=== PATIENT | female | born 1945 | race Caucasian/White ===

== ENCOUNTER → 2017-01-16 | Outpatient (CLI) | payer OTHER ==
[~2017-01-16] MED LIST: DEPAKOTE; DEPAKOTE ER500 MG PO; FISHOIL; IRON; LOVASTATIN 20 M20 MG PO; METFORMIN; METFORMIN HCL500 MG PO; MIRAPEX 0.250.25 M1 PO; MIRAPEX1 MG PO; MOBIC15 MG PO; NIASPAN; NORCO 5-325 TA1 EACH PO; OLANZAPINE10 MG PO; OLANZAPINE7.5 MG PO; PRAMIPEXOLE DIHY1 MG PO; PREDNISONE 10 M10 M1 PO; PREDNISONE50 MG PO; PROVENTIL HFA6.7 G1 INH; TESSALON PERLE100 MG PO; VENTOLIN HFA 1818 GM INH; VENTOLIN17 GM INH; ZOCOR 20 MG TAB20 M1 PO; ZPAK PO; ZYPREXA; ZYPREXA 10 MG T10 MG PO
== END ==
LOC: RAD 10:05
DX: Z12.31 Encounter for screening mammogram for malignant neoplasm of breast (principal)

== ENCOUNTER 2019-03-26 12:38 | Emergency (ER) | payer OTHER ==
[~2019-03-26] VITALS: Ht 162.6 cm; Wt 113.4 kg
[2019-03-26 13:18] LABS: EOSINOPHILS 1.6 % (0.0-3.0); HEMATOCRIT 42.6 % (37.0-47.0); HEMOGLOBIN 14.6 gm/dL (12.0-15.0); LYMPHOCYTES 40.4 % (24.0-44.0); MCH 32.6 pg (26.0-34.0); MCHC 34.4 g/dL (28.0-37.0); MCV 94.9 fL (80.0-100.0); MONOCYTES 6.4 % (1.0-8.0); POLYS 50.6 % (36.0-66.0); RBC 4.49 mil/uL (4.20-5.00); RDW 13.9 % (10.5-14.5)
[2019-03-26 13:21] LABS: ANION GAP 13 mmol/L (7-16); BUN 18 mg/dL (7-18); CALCIUM 8.9 mg/dL (8.5-10.1); CHLORIDE 104 mmol/L (98-107); CO2 23 mmol/L (21-32); CREATININE 1.1 mg/dL (0.6-1.0); GLUCOSE 131 mg/dL (74-106); POTASSIUM 4.1 mmol/L (3.5-5.1); SODIUM 140 mmol/L (136-145)
[2019-03-26 13:32] LABS: ALBUMIN 3.4 g/dL (3.4-5.0); MAGNESIUM 1.4 mg/dL (1.8-2.4); SGOT 17 U/L (15-37); SGPT 20 U/L (30-65); TOTAL BILIRUBIN 0.4 mg/dL (<0.1-1.0); TOTAL PROTEIN 6.6 g/dL (6.4-8.2); TROPONIN-I <0.06 ng/mL (<0.06)
[2019-03-26 13:51] LABS: PLATELET COUNT 216 thou/uL (150-400)
[2019-03-26] MEDS ORDERED: MAG-OXIDE400 MG PO (14:08)
[2019-03-26 14:26] LABS: URINE BILIRUBIN NEGATIVE (Negative); URINE BLOOD 1+ (Negative); URINE CLARITY CLEAR; URINE COLOR YELLOW; URINE GLUCOSE-RANDOM* NEGATIVE (Negative); URINE KETONES 1+ (Negative); URINE LEUKOCYTES-REFLEX NEGATIVE (Negative); URINE NITRITE-REFLEX NEGATIVE (Negative); URINE PROTEIN (DIPSTICK) 1+ (Negative); URINE UROBILINOGEN 0.2 E.U./dl (0.2-1.0)
[2019-03-26 14:30] LABS: BACTERIA-REFLEX None Seen /HPF (None Seen); CRYSTALS None Seen /LPF (None Seen); SQUAMOUS 0-3 Few /LPF (0-3); URINE RBC 0-2 Rare /HPF (0-2); URINE WBC-REFLEX None Seen /HPF (0-5)
[2019-03-26 14:31] LABS: HYALINE CASTS 0-3 Few /LPF (None Seen)
[2019-03-26 15:00] VITALS: BP 118/79
--- NOTE | 2019-03-27 08:10 | EKG ---
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1945 Requested By: uAgie Rivero Order Number: [id number] MD: Huy Pena Measurements Intervals [place] Rate: 67 P: 50 ME: 175 QRS: -40 QRSD: 80 T: 45 QT: 502 QTc: 530 Interpretive Statements Sinus rhythm Left axis deviation Low voltage, precordial leads Consider anterior infarct Compared to ECG 11/12/2011 10:33:29 Electronically Signed On 03-27-2019 8:10:36 CDT by Huy Pena [email or web address] ��������������������������������������������� <ELECTRONICALLY SIGNED> ���������������������������������������� By: Huy Pena MD ��������������������������������������������� 03/27/19 0810 1326 25 Huy Pena MD /SHITAL
== END 2019-03-26 15:00 | disposition home or self-care (01) ==
LOC: ER 12:38
PROVIDERS: Emergency Medicine
DX: R26.9 Unspecified abnormalities of gait and mobility (principal); R53.1 Weakness; T50.905A Adverse effect of unspecified drugs, medicaments and biological substances, initial encounter; F31.9 Bipolar disorder, unspecified; E83.42 Hypomagnesemia; R26.89 Other abnormalities of gait and mobility; Z90.710 Acquired absence of both cervix and uterus; Z88.8 Allergy status to other drugs, medicaments and biological substances

== ENCOUNTER 2019-04-01 10:47 | Inpatient (IN) | payer OTHER ==
[~2019-04-01] VITALS: Ht 2 cm; Wt 112.6 kg
--- NOTE | ~2019-04-01 | HC ---
[facility] [place] [address] CONSULTATION Name: JOSÉ MANUEL FLORES Room #: 208-P ADM IN M.R.#: [id number] Admission: 04/01/19 ������������������ Attend Phys: Jaskaran Jara MD Discharge: ������������������ Date of : 49 Report #: [id number] THIS REPORT FOR: //name// CC: Vincent Jara DATE OF SERVICE: 04/02/2019 HISTORY OF PRESENT ILLNESS: The patient is a 73-year-old white female with history of bipolar disorder, bilateral lower extremity weakness, complains of knee pain for the last couple of weeks. She had a fall prior to admission. She also notes that she has had loss of some of her scalp hair. She is being further evaluated regarding her lower extremity weakness and Neurology is to assess and she has scans that are ordered including MRI of the brain and the thoracic spine. We are seeing her in rehabilitation medicine consultation. PAST MEDICAL HISTORY: Includes history of degenerative arthritis. She has been started on oral Relafen. She has history of left knee surgery in 1987, hysterectomy, bipolar disorder. MEDICATIONS: Please see the full medication listing. ALLERGIES: ARIPIPRAZOLE, HALOPERIDOL, LITHIUM. HABITS: No history of tobacco or alcohol abuse. SOCIAL HISTORY: Lives in an apartment alone, was a furniture walker. Did not utilize gait aids. There is a son that lives close by. REVIEW OF SYSTEMS: No current complaints of chest pain, shortness of breath or abdominal discomfort. PHYSICAL EXAMINATION: GENERAL: A 73-year-old white female, overweight, no obvious distress. She is alert, pleasant, follows basic commands. Facies are symmetric. VITAL SIGNS: Temperature 97.4, pulse 52, respirations 14, blood pressure 91/44. NEUROLOGIC: Functional range of motion of both upper extremities. Strength is grade 4-/5. DTRs are trace to 1. Lower extremities, no focal calf swelling, functional range of motion with strength grade 4-/5. DTRs are trace to 1. In OT, she has been min assist with sit to stand. She did ambulate 10 feet to the bathroom with the walker. She did need some assistance with basic lower body dressing. ASSESSMENT: A 73-year-old white female with the following problem list: 1. Bilateral lower extremity weakness. 2. History of knee degenerative arthritis. [address] [address] CONSULTATION Name: JOSÉ MANUEL FLORES Room #: 208-P [facility] IN M.R.#: [id number] Admission: 04/01/19 ������������������ Attend Phys: Jaskaran Jara MD Discharge: ������������������ Date of : 49 Report #: [id number] 3. History of loss of scalp hair. 4. Bipolar disorder. PLAN: Neurology to consult. Therapy evaluations are underway. MRI scans as noted. We will be glad to follow along with you regarding her rehab therapy needs. ��������������������������������������������� ���������������������������������������� By: ��������������������������������������������� 1444 0524 Venkat Deal MD /nt
[~2019-04-01 10:47] MED LIST changes: +MAG-OXIDE400 MG PO
[2019-04-01 10:48] VITALS: BP 97/58
[2019-04-01 11:23] LABS: ABSOLUTE NEUTROPHILS 5.3 thou/uL (1.4-8.2); BASOPHILS 0.9 % (0.0-2.0); EOSINOPHILS 0.5 % (0.0-3.0); HEMATOCRIT 42.4 % (37.0-47.0); HEMOGLOBIN 14.3 gm/dL (12.0-15.0); LYMPHOCYTES 30.9 % (24.0-44.0); MCH 32.2 pg (26.0-34.0); MCHC 33.6 g/dL (28.0-37.0); MCV 95.7 fL (80.0-100.0); PLATELET COUNT 224 thou/uL (150-400); POLYS 59.7 % (36.0-66.0); RBC 4.43 mil/uL (4.20-5.00); RDW 13.8 % (10.5-14.5); WBC 8.8 thou/uL (4.0-11.0)
[2019-04-01 11:30] LABS: ANION GAP 7 mmol/L (7-16); BUN 14 mg/dL (7-18); CALCIUM 9.1 mg/dL (8.5-10.1); CHLORIDE 106 mmol/L (98-107); CO2 28 mmol/L (21-32); CREATININE 0.9 mg/dL (0.6-1.0); GLUCOSE 124 mg/dL (74-106); SODIUM 141 mmol/L (136-145)
[2019-04-01 11:35] LABS: INR 1.1; PROTIME 11.3 Seconds (9.3-11.4)
[2019-04-01 11:41] LABS: ALBUMIN 3.3 g/dL (3.4-5.0); MAGNESIUM 1.9 mg/dL (1.8-2.4); SGOT 16 U/L (15-37); SGPT 19 U/L (30-65); TOTAL BILIRUBIN 0.5 mg/dL (<0.1-1.0); TOTAL PROTEIN 6.9 g/dL (6.4-8.2); TROPONIN-I <0.06 ng/mL (<0.06)
[2019-04-01 14:54] LABS: URINE BILIRUBIN NEGATIVE (Negative); URINE BLOOD TRACE (Negative); URINE CLARITY CLEAR; URINE COLOR YELLOW; URINE GLUCOSE-RANDOM* NEGATIVE (Negative); URINE KETONES 1+ (Negative); URINE LEUKOCYTES-REFLEX NEGATIVE (Negative); URINE NITRITE-REFLEX NEGATIVE (Negative); URINE PROTEIN (DIPSTICK) NEGATIVE (Negative); URINE UROBILINOGEN 0.2 E.U./dl (0.2-1.0)
[2019-04-01 17:16] LABS: FOLIC ACID 39.7 ng/mL (8.6-58.9)
[2019-04-01 23:42] VITALS: BP 111/60
[2019-04-02 01:13] VITALS: BP 111/60
[2019-04-02 04:38] VITALS: BP 104/62
[2019-04-02 07:14] VITALS: BP 91/44
[2019-04-02] MEDS ORDERED: BENZTROPINE MES1 MG PO (11:23)
[2019-04-02 16:00] VITALS: BP 106/64
[2019-04-02 16:10] LABS: 25-HYDROXY TOTAL 16.6 ng/mL (30.0-100.0)
[2019-04-02 19:48] VITALS: BP 130/72
[2019-04-03] VITALS (7 sets, daily range): BP systolic 106–122; BP diastolic 60–76
[2019-04-03] MEDS ORDERED: MIRALAX17 GM PO (18:35)
[2019-04-03] MEDS ORDERED: NABUMETONE 500500 M1 PO (18:35)
[2019-04-03] MEDS ORDERED: SYNTHROID25 MC1 PO (18:35)
[2019-04-03] MEDS ORDERED: ACETAMINOPHEN325 M1 PO (18:35)
[2019-04-03] MEDS ORDERED: VITAMIN D2000 UNIT PO (18:45)
== END 2019-04-03 20:36 | disposition home health service (06) | DRG 72 ==
LOC: ER 10:47 → EROBS 15:31 → 2N 15:31
PROVIDERS: Emergency Medicine; Nurse Practitioner; ADMIT Internal Medicine
DX: G93.40 Encephalopathy, unspecified (principal); G31.9 Degenerative disease of nervous system, unspecified; R26.0 Ataxic gait; F31.9 Bipolar disorder, unspecified; M17.10 Unilateral primary osteoarthritis, unspecified knee; E03.9 Hypothyroidism, unspecified; E55.9 Vitamin D deficiency, unspecified; W19.XXXA Unspecified fall, initial encounter; Y93.89 Activity, other specified; Y92.89 Other specified places as the place of occurrence of the external cause; Y99.8 Other external cause status; Z88.8 Allergy status to other drugs, medicaments and biological substances; Z79.899 Other long term (current) drug therapy; Z90.710 Acquired absence of both cervix and uterus
CPT/HCPCS: 10081; 10797

== ENCOUNTER 2019-08-13 12:56 | Inpatient (IN) | payer OTHER ==
[~2019-08-13] VITALS: Ht 162.6 cm; Wt 102.5 kg
[~2019-08-13 12:56] MED LIST changes: +ACETAMINOPHEN325 M1 PO; +BENZTROPINE MES1 MG PO; +MIRALAX17 GM PO; +NABUMETONE 500500 M1 PO; +SYNTHROID25 MC1 PO; +VITAMIN D2000 UNIT PO
[2019-08-13 13:38] LABS: ABSOLUTE NEUTROPHILS 3.5 thou/uL (1.4-8.2); BASOPHILS 1.3 % (0.0-2.0); HEMATOCRIT 46.1 % (37.0-47.0); HEMOGLOBIN 15.5 gm/dL (12.0-15.0); LYMPHOCYTES 46.4 % (24.0-44.0); MCH 32.2 pg (26.0-34.0); MCHC 33.6 g/dL (28.0-37.0); MCV 95.8 fL (80.0-100.0); MONOCYTES 6.5 % (1.0-8.0); PLATELET COUNT 271 thou/uL (150-400); POLYS 44.8 % (36.0-66.0); RBC 4.81 mil/uL (4.20-5.00); WBC 7.8 thou/uL (4.0-11.0)
[2019-08-13 13:44] LABS: ANION GAP 11 mmol/L (7-16); BUN 15 mg/dL (7-18); CALCIUM 9.7 mg/dL (8.5-10.1); CHLORIDE 104 mmol/L (98-107); CO2 25 mmol/L (21-32); CREATININE 1.1 mg/dL (0.6-1.0); GLUCOSE 125 mg/dL (74-106); POTASSIUM 3.9 mmol/L (3.5-5.1); SODIUM 140 mmol/L (136-145)
[2019-08-13 13:54] LABS: ALBUMIN 3.8 g/dL (3.4-5.0); SGOT 18 U/L (15-37); SGPT 21 U/L (30-65); TOTAL BILIRUBIN 0.7 mg/dL (<0.1-1.0); TOTAL PROTEIN 7.6 g/dL (6.4-8.2); TROPONIN-I <0.06 ng/mL (<0.06)
[2019-08-13 14:12] LABS: URINE BILIRUBIN NEGATIVE (Negative); URINE BLOOD 1+ (Negative); URINE CLARITY CLOUDY; URINE COLOR YELLOW; URINE GLUCOSE-RANDOM* NEGATIVE (Negative); URINE KETONES NEGATIVE (Negative); URINE NITRITE-REFLEX NEGATIVE (Negative); URINE PROTEIN (DIPSTICK) 2+ (Negative); URINE SPECIFIC GRAVITY >= 1.030 (1.005-1.035); URINE UROBILINOGEN 0.2 E.U./dl (0.2-1.0)
[2019-08-13 14:14] LABS: URINE LEUKOCYTES-REFLEX 1+ (Negative)
[2019-08-13 14:17] LABS: SQUAMOUS >10 Many /LPF (0-3)
[2019-08-13 14:20] LABS: CASTS None Seen /LPF (None Seen); RENAL EPITHELIAL CELLS 0-3 Few /LPF (None Seen)
[2019-08-13 14:21] LABS: URINE RBC 3-10 Few /HPF (0-2)
[2019-08-13 14:22] LABS: CRYSTALS None Seen /LPF (None Seen); MUCUS 4-6 Moderate strn/LPF (None Seen)
[2019-08-13 14:23] LABS: TRANSITIONAL EPITHEL CELL 4-10 Moderate /LPF (None Seen)
[2019-08-13 15:48] VITALS: BP 139/88
[2019-08-13 16:14] VITALS: BP 139/88
--- NOTE | 2019-08-13 16:28 | NUR ---
1605 Admitted patient to room from ER, patient alert, cooperative, diagnosis manic with second degree bipolar. Ht 5'4" weight 130, Bp 124/69, Temp 98.0, Pulse 72, RES 16. Patient explained rules of unit, visiting hour, telephone calls. Patient inventory done, patient's son Eduardo dropped patient off and left. Patient's son notified of patient's admission.
[2019-08-13 17:36] VITALS: BP 124/69
--- NOTE | 2019-08-13 18:17 | NUR ---
1700 new admit transferred from emergency room for suicdal ideations and manic behavior/ bipolar. While assessing patient on unit, patient denied si and was very calm cooperative. Patient's son dropped patient at er and left. Patient lives in a long term, DR Dixon accepted patient after talking with long term to make sure she can come back. Patient ate all her dinner no complaints. Patient was asked to shower but refused, she needs encouraging to shower patient smells. Patients assessment done.
[2019-08-13 21:17] VITALS: BP 124/74
--- NOTE | 2019-08-14 02:43 | NUR ---
ASSUMED CARE OF PATIENT AT 1915 ON 08/13/19. THIS RN ARRIVED TO THE UNIT, WAS GIVEN REPORT OF THIS PATIENT. PATIENT LAYING IN BED DURING HAND OFF ROUNDS WITH EYES CLOSED, BUT OPENS THEM TO MY VOICE. THIS NURSE EXITED ROOM. AT APPROXIMATELY 2030, THIS NURSE ATTEMPTED TO PASS MEDICATION, PATIENT STATED 'I AM NOT TAKING MEDICATION!' THIS NURSE ASKED WHAT THE PROBLEM IS AND SHE STATED 'THEY ALWAYS MAKE ME FEEL GOOD AND MORE WHATS WRONG WITH ME.' THIS NURSE ATTEMPTED TO CALM GUEST, BUT WAS UNABLE TO DO SO. PATIENT ARRIVED AT DESTINATION WITH NO FURTHER ISSUES, SHE MADE NO SI STATEMENTS, HI, AH/VH. WILL CONTINUE TO MONITOR NEEDED.
--- NOTE | 2019-08-14 08:20 | EKG ---
[place] [address] [facility] [place] [address] ELECTROCARDIOGRAM REPORT Name: JOSÉ MANUEL FLORES Room #: 523B-B ADM IN M.R.#: [id number] Admission: 08/13/19 Attend Phys: Mario Dixon DO Discharge: Date of : 49 Report #: [id number] THIS REPORT FOR: //name// [facility] ED Test Date: 2019-08-13 Test Time: 14:26:32 Pat Name: JOSÉ MANUEL FLORES Department: Room: 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1945 Requested By: Silva Garcia Order Number: [id number] MD: Kishore Cna Measurements Intervals [place] Rate: 59 P: 13 MS: 167 QRS: -33 QRSD: 83 T: 50 QT: 506 QTc: 502 Interpretive Statements Sinus rhythm Left axis deviation Consider anterior infarct Prolonged QT interval Compared to ECG 03/26/2019 13:26:08 Prolonged QT interval now present Electronically Signed On 08-14-2019 8:20:42 CDT by Kishore Can [email or web address] <ELECTRONICALLY SIGNED> By: Kishore Can MD, FAC 08/14/19 0820 1426 1426 Kishore Can MD, [facility] /EPI
[2019-08-14 08:55] VITALS: BP 146/73
[2019-08-14 09:00] VITALS: BP 146/73
--- NOTE | 2019-08-14 09:24 | NUR ---
PT UP WALKING AROUND THE UNIT. PT ATTENDING GROUP THIS AM. PT DIDN'T REFUSE MEDS THIS AM. PT STATED THANK YOU.
[2019-08-14 09:46] LABS: TSH 1.955 uIU/mL (0.358-3.740)
--- NOTE | 2019-08-14 17:56 | NUR ---
RIOS contacted pt's son Eduardo and got a history of pts activities from him. He said every few years pt will do well on her med regimine, and then her meds stop being effective. He said when she is manic, she tends to do dangerous things such as steal his car and run people over, or drive from to [place]. He said he believes she has currently stopped all of her meds. She was on a regimine of olanzipine and Depakote; the olanzipine was causing pt to shake so her doctor titrated her down to 2.5 mg. This caused her to experience odd behaviors so her doctor brought her back to her normal regimine of 10mg. Her behaviors did not improve. Yesterday, Eduardo reports he called his mom to take her to lunch and she responded "God didnt want us to meet and has plans for me." He immediately knew she was manic and asked a special police to escort her to the hospital. He said pt fought and hit the special police. He also mentioned wanting to obtain guardianship of his mother. He would like to meet with the psych doc via phone on at either 10am or 2pm. He also asked for permission to meet bring pt her things after he gets off work at 8pm and visit for a little bit. RIOS spoke with psych doc who said he will give permission for visits to occur from [phone] with pt's son. He also will call him today to get a history of medications and behaviors. He gave RIOS contact information for a guardianship wet end operator (Karly Garay [phone]) to assist pt's son. RIOS relayed this informaition to pts son. RIOS will continue to follow pt during her stay in the hospital.
[2019-08-14 20:23] VITALS: BP 117/68
[2019-08-14 23:15] VITALS: BP 117/68
--- NOTE | 2019-08-15 02:58 | NUR ---
OUT WITH PEERS IN DAY ROOM EARLY IN EVENING. AFTER SNACKS, PT TOOK HS MEDS WITH ENCOURAGEMENT. SON VISITED AND BROUGHT CLOTHES. INVENTORIED AND PLACED IN STORAGE CLOSET. ABOUT 2300, PT BECAME NAUSEATED AND VOMITED MODERATE AMOUNT OF STOMACH CONTENTS, BROWNISH IN COLOR. CLAIMS TO FEEL BETTER, AND IS SLEEPING WELL AT THIS TIME.
[2019-08-15 07:30] VITALS: BP 115/68
[2019-08-15 07:51] VITALS: BP 115/68
--- NOTE | 2019-08-15 08:52 | NUR ---
PT LYING IN BED WITH EYES OPEN. PT STILL HAS SOME NAUSEA, BUT REQUEST COOKIES AND APPLE JUICE. PT ACCEPTED TEGRETAL THIS AM. PT STATED SHE TOLD NURSE NOT TO GIVE HERE THAT DEPAKOTE AND ZYPREXIA CAUSE IT MAKES HER SICK. PT DIDN'T KNOW WHY SHE HAS TO TAKE MEDS. THIS CREDIT HISTORIAN ASKED IF SHE TAKES MEDS SHE SAID NO.
--- NOTE | 2019-08-15 13:59 | NUR ---
PT TOLERATED LUNCH, PT HAS NOT COMPLAINED OF ANY NAUSEA.
[2019-08-15 19:47] VITALS: BP 134/87
--- NOTE | 2019-08-15 22:24 | H ---
[facility] [place] [address] HISTORY AND PHYSICAL Name: JOSÉ MANUEL FLORES Room #: 523B-B ADM IN M.R.#: [id number] Admission: 08/13/19 Attend Phys: Mario Dixon DO Discharge: Date of : 49 Report #: [id number] THIS REPORT FOR: //name// CC: Mario Dixon Vincent Brown DATE OF SERVICE: 08/14/2019 INPATIENT PSYCHIATRIC EVALUATION ATTENDING PHYSICIAN: Mario Dixon DO CLINICAL OUTCOMES MANAGER: Emiliano Stone MD SOURCES OF INFORMATION: Chart notes from the ER, medical records including the patient being here and looks like March of this year for a brief hospitalization for weakness and balance issues. CHIEF COMPLAINT: Brought in by the police for concerns of anastasiya, altered mental status, self-care failure. She was seen in the ER by nurse practitioner, Rivka. HISTORY OF PRESENT ILLNESS: The patient is a 74-year-old female who presented to the ED after patient's son began to feel concern for safety. Per the patient, the patient has a history of bipolar disorder that was diagnosed 20 years ago. Son stated to me it was more like 30 years ago, but anyways has been not taking medications 2-3 months including Depakote and olanzapine. This is prescribed by Dr. Mario Robledo. The patient reports she began to notice increased swelling to her lower extremities, diarrhea or weight gain. The patient believed these symptoms were due to her medications, so she decided to stop taking them. After symptoms subsided, the patient reports she feels safe at home and does not know why she was taken to the ED. She denied complaints as well as SI or HI. Per the patient's son, she becomes increasingly manic. The patient's son has been disheveled and unkempt. She has also been making statements to other areas of short hostile nature. He visits her 1-2 times per week, picks through the lunch. When I called the patient this week, she stated "don't come to see me and the lord has better plans for me." Her PCP is Dr. Allen. PAST MEDICAL HISTORY: Lower extremity weakness and falls. PAST SURGICAL HISTORY: Hysterectomy in 2000, left knee surgery in 1987, bone spur in nose in 1983, history of falls, psychiatric history of bipolar disorder. FAMILY PSYCHIATRIC HISTORY: Maternal grandmother, bipolar disorder. Her mother [address] [address] HISTORY AND PHYSICAL Name: JOSÉ MANUEL FLORES Room #: 523B-B ADM IN .R.#: [id number] Admission: 08/13/19 Attend Phys: Mario Dixon DO Discharge: Date of : 49 Report #: [id number] is currently 89, I believe, and has evolving dementia. CURRENT MEDICATIONS: At home are nabumetone, levothyroxine, cholecalciferol, Mirapex. As stated, she discontinued olanzapine, Depakote on her own. ALLERGIES: To HALDOL, LITHIUM, ARIPIPRAZOLE, shakes, stiffness things like that. SOCIAL HISTORY: No smoking, no alcohol, no drug history. REVIEW OF SYSTEMS: From the Emergency Room yesterday; CONSTITUTIONAL: Denies fever, chills, malaise or unexplained weight change. EYES: Denies eye pain, visual change or discharge. HENT: Denies hearing changes, ear drainage, ear infections, ear pain, neck pain or neck stiffness. RESPIRATORY: Denies cough, shortness of breath, hemoptysis or respiratory distress. CARDIOVASCULAR: Denies chest pain, chest pain with exertion or edema. GASTROINTESTINAL: Denies abdominal pain, nausea, vomiting or diarrhea. GENITOURINARY: Denies burning, frequency or dysuria. MUSCULOSKELETAL: Denies back pain, joint pain, muscle weakness or myalgias. SKIN: Denies rash. NEUROLOGIC: Denies weakness, headache or loss of consciousness. PSYCHIATRIC: Denied SI, HI or psychiatric problems. Otherwise, 10-point review of systems was negative. Her exam in the ER was 83.92 kilos female, I think the weight may be off a bit. EKG showed sinus rhythm, rate of 59, left axis deviation, prolonged QT. Labs done in the ER, sodium 140, potassium 3.9, chloride 104, bicarbonate 25, BUN 15, creatinine 1.1, glucose 125, calcium 9.7, total bilirubin 0.7, AST 18, ALT 21, alkaline phosphatase 66. Troponin less than 0.06. Total protein 7.6, albumin 3.8. White count 7.8, H and H 15.5 and 46.1, platelet count 271. Urinalysis was abnormally positive with moderate mucus, moderate bacteria, many squamous cells, leukocyte esterase is 1+, urine nitrites were negative, 1+ blood, 2+ protein. It has been reflux for culture. PHYSICAL EXAMINATION: VITAL SIGNS: Today, temperature 36.9, pulse 51, respirations 16, BP 146/73. MUSCULOSKELETAL: She has a left convex scoliosis somewhat of a slowed gait. She did pass her physical therapy exam pretty well. MENTAL STATUS EXAMINATION: This is a well-developed, mildly obese female appearing stated age, but disheveled. Attention is impaired. Concentration limited. Speech is normal in rate, volume and tone. Thought process is linear and goal oriented. Thought content focused on discharge. [address] [place] [address] HISTORY AND PHYSICAL Name: JOSÉ MANUEL FLORES Room #: 523B-B ADM IN M.R.#: [id number] Admission: 08/13/19 Attend Phys: Mario Dixon DO Discharge: Date of : 49 Report #: [id number] psychomotor agitation, no psychomotor retardation. Denied SI or HI. Denied hopelessness, helplessness. Denied homicidal intent or plan. Memory formally tested with [facility] Mental Status Examination, ____ SLUMS result total score 18/30. Deficits were 1/3 when answered question, 1/5 ____ recall, 1/2 on reverse digit span, 2/4 on clock drawing and 6/8 on a paragraph fact recall. Insight limited. Judgment limited. Fund of knowledge, high average range. FORMULATION: A 74-year-old mildly obese female admitted for anastasiya, ruling out neurocognitive disorder. ASSESSMENT: Bipolar 1 disorder, most recent episode manic, moderate degree, unspecified cognitive impairment, rule out major neurocognitive disorder. MEDICAL COMORBIDITIES: As follows: 1. UTI. 2. Mild renal failure. 3. Hypothyroidism. PLAN: Evaluate, stabilize, obtain collateral. As stated in my HPI, I spoke with the son, Eduardo, who is in favor of hospitalization. 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 I am going to go ahead and restart the patient's olanzapine and Depakote. I explained to her that her failure to comply is delaying her discharge and participating in community activities. Time spent on interview, review of records, coordination of care is at least 60 minutes. STRENGTHS: She is insured supportive family. WEAKNESSES: Long mental illness, advancing age. <ELECTRONICALLY SIGNED> By: Mario Dixon DO 08/15/19 2224 1614 1828 Mario Dixon DO /nt
--- NOTE | 2019-08-16 00:32 | NUR ---
ASSUMED CARE @ 19:15 ON 08/15/19. SPOKE TO DAUGHTER ON PHONE, TOOK HS MEDS WHOLE WITH THIN WATER. ASKED FOR AND ATE A SNACK. COOPERATED WITH ASSESSMENT. DENIED SI AND HI. A&OX3-4. PT IN BED AT THIS TIME.
[2019-08-16 02:57] VITALS: BP 134/87
--- NOTE | 2019-08-16 06:12 | NUR ---
SLEPT 7 HOURS OVERNIGHT
[2019-08-16 06:13] VITALS: BP 134/87
[2019-08-16 07:00] VITALS: BP 139/78
[2019-08-16 08:30] VITALS: BP 139/78
--- NOTE | 2019-08-16 10:05 | NUR ---
THE PATIENT REFUSED MDICATIONS THIS MORNING carbamazepine XR AND NABUMENTONE. SHE COMLPAINED OF N/V LAST NIGHT AND THIS IS HER SECOND EPISODE OF N/V. THE PATIENT EXPRESSED THAT SHE VOMITED HER MEDICATIONS LAST NIGHT. SHE STATED THAT SHE IS IN NO PAIN THUS FAR TODAY. SHE DID EAT BREAKFAST THIS MORNING AND HELD IT DOWN. SHE HAS ORDERED LUNCH FOR TODAY. CONTINUE TO MONITOR.
--- NOTE | 2019-08-16 19:30 | NUR ---
SON HERE STATED THAT HIS MOM DIDN'T HAVE ANY ISSUES WITH DEPAKOTE, THAT SHE TOOK THE MED FOR 4 YEARS. NOW PT COMPLAINING ABOUT TEGRETAL MAKING HER SICK. HE ALSO STATED THAT SHE HAD ZYPREXIA BEFORE WITHOUT ANY ISSUES. HE STATED HE JUST WANTED HER TO GET HER LEVELS UP.
--- NOTE | 2019-08-16 22:36 | NUR ---
THE PT REFUSED ALL OF HER HS MEDICATIONS EXCEPT FOR ANTIBIOTIC MEDICATION. THE PT WAS SITTING WITH HER SON WHEN THIS PAYROLL ADMINISTRATIVE ASSISTANT CAME ON DUTY. ALERT ET ORIENTED X 3. WALKS WITH A STEADY GAIT. DENIES SI, HI, ANXIETY AND DEPRESSION. REMAINS ON 12 MINUTE CHECKS FOR HER SAFETY.
[2019-08-16 22:50] VITALS: BP 133/81
--- NOTE | 2019-08-17 04:31 | NUR ---
THE PT APPEARS TO BE RESTING COMFORTABLY IN BED AT THIS TIME. REMAINS ON 12 MINUTE CHECKS FOR HER SAFETY.
--- NOTE | 2019-08-17 06:10 | NUR ---
THE PT SLEPT 7 HOURS LAST NIGHT.
[2019-08-17 09:12] VITALS: BP 121/82
[2019-08-17 13:02] VITALS: BP 121/82
--- NOTE | 2019-08-17 13:18 | NUR ---
PATIENT WAS UP AND OUT IN THE DAY ROOM WHEN CARE ASSUMED. PATIENT HAD BREAKFAST WITHOUT PROBLEM. WHEN APPROACHED BY THIS RN FOR MORNING MEDICATION, PATIENT STATES "I AM NOT TAKIG ANY MEDICINE UNTILL I TALK TO MY DOCTOR" NURSE YELITZATITIONER (RAMÓN) NOTIFIED, NO NEW ORDER NOTED AT THIS TIME. THIS NURSE TRIED AGAIN TO GIVE PATIENT MORNING MEDICATION, SHE FINALY TOOK SOME, WITH LOTS OF ENCOURAGEMENT FROM DR. CRENSHAW. SHE REFUSED MIRALAX, AND NABUMETONE " I HAVE HAD BOWEL MOVEMENT THIS MORNING AND I DON'T HAVE INFLAMATIONS". PATIENT DENIES SUICIDAL/HOMICIDAL IDEATION. SHE DENIES DEPRESSION/ANXIETY/AUDITORY/VISUAL HALLUCINATION. AFFECT IS FLAT, AND BLUNTED, MOOD IS DEPRESSED. PATIENT ISOLATES SELF TO ROOM, NO SIGN OF ACUTE DISTRESS NOTED AT THIS TIME, WILL MONITOR FOR SAFETY.
--- NOTE | 2019-08-17 23:38 | NUR ---
ASSUMED CARE OF THE PT AT 191 PM. ALERT ET ORIENTED X 3. MAKES NEEDS KNOWN. WALKS WITH A STEADY GAIT, WAS SITTING IN THE DAYROOM WHEN THIS PLASTER TENDER CAME ON DUTY. SHE REFUSED THE MAJORITY OF HER HS MEDICATIONS, STATED THAT SHE WANTED TO TALK WITH HER DOCTOR BEFORE TAKING THEM, THEY MAKE HER HAVE NAUSEA. DENEIS ANXIETY, DEPRESSION, SI/HI, A/V HALLUNICATIONS. REMAINS ON 12 MINUTE CHECKS FOR HER SAFETY.
--- NOTE | 2019-08-18 03:54 | NUR ---
THE PT APPEARS TO BE SLEEPING QUIETLY IN BED THIS SHIFT. HAS BEEN UP X 2 SO FAR THIS SHIFT. REMAINS ON 12 MINUTE CHECKS FOR HER SAFETY.
--- NOTE | 2019-08-18 05:53 | NUR ---
THE PT SLEPT 9.2 HOURS LAST NIGHT.
--- NOTE | 2019-08-18 10:59 | NUR ---
PATIENT HAS BEEN UP IN THE DAYROOM, SHE IS ALERT AND ORIENTED X 3, SHE IS COMPLIANT WITH HER MEAL, SHE DEINES SI/HI AND AVH, SHE IS VERY LABILE, AFTER ASKING FOR A PENCIL SO SHE "CAN KEEP IT IN MY ROOM" SHE BECAME VERY AGITATED AND VERBALLY ABUSIVE WHEN EXPLAINED SHE HAD TO USE THE PENCIL IN THE DAYROOM AND NEEDED TO TURN IT IN AFTER SHE WAS DONE. SHE REFUSED ALL MEDS EXCEPT FOR HER ANTIBIOTIC, AND SAID SHE HAS NEVER BEEN ON ANY OF THE MEDS I EXPLAINED TO HER. CONTINUE TO MONITOR FOR BEHAVIORS AND SAFETY ISSUES.
[2019-08-18 12:50] VITALS: BP 121/82
[2019-08-18 20:33] VITALS: BP 130/76
--- NOTE | 2019-08-19 03:50 | NUR ---
PT AMBULATING INDEPENDENTLY AND IS TOLERATING FAIR. DENIES PAIN. RESTING COMFORTABLY. WILL CONTINUE TO PROVIDE FREQUENT OBSERVATION.
[2019-08-19 08:30] VITALS: BP 113/69
--- NOTE | 2019-08-19 09:39 | NUR ---
PT SITTING IN ROOM. PT FINISHED BREAKFAST. PT REFUSED AM MEDS EXCEPT VIT D. PT STATED SHE WANTED TO TALK TO THE DR. PT STATED THAT GOD HEALED HER FROM BIPOLAR. SHE REFUSED TO GO TO GROUP DUE TO SAYING SHE HAD ALOT OF THINGS GOING ON, PRAYING FOR GOD TO WHICH DIRECTION TO GO. PT STATED SHE HASN'T HAD NAUSEA AND VOMITING SINCE NOT TAKING TEGRATOL OR DEPAKOTE.
[2019-08-19 09:59] VITALS: BP 113/69
--- NOTE | 2019-08-19 14:00 | NUR ---
PT EATING SNACK. PT STATED WHEN SHE HAD KAILYE FROM BIPOLAR SHE WOULD SPEED. PT STATED SHE HASN'T DONE THAT, SHE HAS BEEN GOOD. SHE DENIED ANY DEPRESSION WITH BIPOLAR.
[2019-08-19 20:21] VITALS: BP 110/70
[2019-08-20 00:14] VITALS: BP 110/70
--- NOTE | 2019-08-20 03:11 | NUR ---
PT OUT WITH PEERS AT START OF EVENING. ALLOWED ASSESSMENT BY STAFF. REFUSED MEDS AFTER SNACKS. TRIED TO ENCOURAGE HER, BUT BECAME LOUD AND SURLY TOWARD STAFF. AFTER SHE CALMED, RETURNED TO ROOM TO TRY AGAIN WITH MEDS. SON VISITED, AND TRIED TO GET HER TO TAKE MEDS WELL. CLAIMED HE HAS A MEETING WITH MD IN THE AM. PT TOLD ME THAT SHE WOULD AGREE TO TAKE MEDS IF MD WOULD SWITCH HE TO DEPAKOTE. MACKAY SLEPT WELL THROUGH THE NIGHT TO THIS POINT.
--- NOTE | 2019-08-20 08:41 | NUR ---
PT REFUSED SOME MEDS THIS AM, TEGRETAL AND ANTIINFLAMMATORY. PT STATED SHE HAD SOME DIARRHEA THIS AM. PT DENIED ANY N/V. PT DENIES ANY PAIN. PT HAS NO SEEN BEHAVIORS.
[2019-08-20 09:00] VITALS: BP 142/99
[2019-08-20 09:08] VITALS: BP 142/99
--- NOTE | 2019-08-20 13:16 | NUR ---
SW was approached by the psych doctor with info that he would like to d/c pt on 08/21 contrary to what pt's son wants; she does not have a guardian who can stop pt from leaving. He said he mentioned HH to her but pt denied the service. SW talked with pt who agrees with going home tomorrow. SW also talked with pt about her son's concerns. Pt said it doesn't matter to her what her son thinks. SW also offered to set up HH services for pt again. She denied this and said she cooks, cleans, and cares for self. SW explained that it is simply just for oversight. Pt thanked RIOS but still denied the service. Pt said she would like to be present at the family meeting with her son tomorrow so she can tell him she wants to go home. SW asked if a d/c time of 1500 on 08/21 was ok, and pt said that was fine. SW team will continue to follow pt during her stay.
--- NOTE | 2019-08-20 13:59 | NUR ---
Date of Admission: 08/13/19 Date of Activity Therapy Assessment: 08/16/19 Activity Goal: Insight and impulse control Initial Goal: 2 Group activities/day Weekly progress towards goal: On track Group participation level: Moderate Behaviors observed: Patient was very isolative upon admission to unit, but has recently begun following treatment plan and attending a minimum of 1 group per day, though she often has a poor outlook or attitude - is seen rolling eyes, etc. Plan: No change towards goal
--- NOTE | 2019-08-20 17:09 | NUR ---
RIOS attended a meeting with pt, her son Eduardo, and the psych doctor. It was decided that pt will become compliant with meds, and will stay until Monday for further observation. The psych doctor talked with her about obtaining a DPOA, and pt said she wants time to think about that. She also needs [employer] to do a Medicaid screening with her. SW emailed asking for them to come and screen pt. SW team will continue to follow pt during her stay.
[2019-08-20 20:00] VITALS: BP 110/77
[2019-08-21 01:19] VITALS: BP 110/77
--- NOTE | 2019-08-21 01:46 | NUR ---
PATIENT SAT UP IN DINING ROOM WATCHING BASEBALL UNTIL SHE WENT TO BED TONITE. SHE WAS PLEASANT AND SAID SHE IS NOT HAPPY WITH DR MEREDITH. SHE THINKS SHE CAN GO HOME NOW AND HE WANTS HER TO STAY AT LEAST 5 MORE DAYS. PATIENT HAS NOT BEEN WANTING TO TAKE HER MEDS. SHE DID REFUSED HER NABUMETONE AND PRAMIEXOLE TONIGHT. SHE DID TAKE HER DEPAKOTE AND OLANZAPINE. PATIENT IS INDEPENDENT WITH CARES AND AMBULATES WELL. PATIENT IN BED AND SLEEPING AT THIS TIME.
[2019-08-21 11:17] VITALS: BP 110/73
--- NOTE | 2019-08-21 14:29 | NUR ---
Pt. up in dining room watching TV without s/o distress. Alert and orientated X 4. Cooperative except for refusing some medications. Denies SI/HI. Aggravated with noisy environment and bed alarms. Breath sounds clear t/o, bilaterally equal. Regular HR with brisk capillary and palpable peripheral pulses. Active bowel sounds over soft, rounded abdomen. Ambulates without difficulty around unit.
--- NOTE | 2019-08-21 15:27 | NUR ---
[facility] came to visit pt to do a screening for Medicaid. A few min after the rep met with pt, she told SW that pt has denied completing the Medicaid Jeannie. SW received a call from Karly Garay (guardianship document review attorney) who gave her the names and numbers of two attorneys that help with private guardianship cases: Everardo Rosado [phone] et [address] and José Miguel Siddiqui [phone]. SW contacted pt's son Eduardo, no answer. SW left message. SW team will continue to follow pt during her stay.
[2019-08-21 20:03] VITALS: BP 117/76
[2019-08-22 00:35] VITALS: BP 117/76
--- NOTE | 2019-08-22 04:27 | NUR ---
PATIENT UP IN THE DINING ROOM AT BEGINNING OF SHIFT 0. SHE IS PLEASANT AND COOPERATIVE. SHE DENIES PAIN. SHE WAS VISITING WITH A MALE PEER THEY WATCHED THE [employer] BASEBALL GAME. SHE CONTINUES TO REFUSE SOME OF HER MEDS. SHE REFUSED HER RELAFEN AND THE MED FOR HER RESTLESS LEG SYNDROME. SHE ALSO REFUSED HER MIRALAX. SHE DID HAVE BM ON 08/20/19. PATIENT DID HOWEVER, TAKE HER OLANZAPRINE AND HER DEPAKOTE WITHOUT HESITATION. HER VSS. PATIENT IS INDEPENDENT WITH ADL'S. SHE WENT TO BED BY 2200 AND HAS BEEN SLEEPING SOUNDLY SINCE THEN. ROUTINE ROUNDING TO CHECK ON PATIENT. CONTINUING TO MONITOR.
[2019-08-22 09:07] VITALS: BP 104/61
[2019-08-22 11:21] VITALS: BP 104/61
--- NOTE | 2019-08-22 15:25 | NUR ---
PATIENT HAS BEEN UP AND OUT ON THE UNIT, SHE TOOK SOME OF HER MORNING MEDICATION, REFUSED MIRALAX, AND NABUMETONE. PATIENT IS EATING MEALS, AND DRINKING FLUID WELL. PATIENT DENIES SUICIDAL/HOMICIDAL IDEATION. SHE DENIES DEPRESSION/ANXIETY. PATIENT PARTICIPATING IN GROUP THERAPY. SHE DENIES ALL PSYCH ISSUES, NO SIGN OF ACUTE DISTRESS NOTED AT THIS TIME, WILL MONITOR FOR SAFETY.
[2019-08-22 19:47] VITALS: BP 124/68
--- NOTE | 2019-08-22 23:01 | NUR ---
PT TALKING ON PHONE TO DAUGHTER SMILING LAUGHING. PTS SON VISITED WITH OUTSIDE REG VISITING HOURS ORDERED. PT DISHEVLED, STEADY GAIT, GOOD EYE CONTACT. PT REFUSED HER NSAID AND MIRALAX MEDS, COMPLIAN WITH OTHERS.
[2019-08-23 08:28] VITALS: BP 121/74
--- NOTE | 2019-08-23 11:11 | NUR ---
Assess for length of stay. Admitted to [facility] with neurocognitive disorder; UTI. Eating 100% of all meals. Wt patterns difficult to assess and they have extreme variations. Will request new wt for tomorrow and continue to follow. Low nutrition risk
--- NOTE | 2019-08-23 17:54 | NUR ---
Awake and alert, talking with peers. Orientated X4. Refusing some medications. Ambulates without difficulty. Denies SI/HI and pain. Breath sounds clear t/o, bilaterally equal. Color pink with brisk capillary refill and palpable peripheral pulses. Reg HR auscultated. Active bowel sounds over soft, rounded abdomen. Spent most of day outside of meal times in her room sitting in chair or lying in bed. Refuses shower. States she will take one this evening.
[2019-08-23 20:42] VITALS: BP 159/96
--- NOTE | 2019-08-24 03:17 | NUR ---
ASSUMED CARE @ 19:20 ON 08/23/19. AMBULATING BETWEEN BEDROOM AND DAY ROOM. DENIES SI AND HI. DENIES AUDIO AND VISUAL HALLUCINATIONS. TOOK HS MEDS WHOLE WITH WATER. IN BED BY 21:30. UP TO TOILET IN THE NIGHT. WILL CONTINUE TO MONITOR Q 12 MINUTES FOR PATIENT SAFETY.
[2019-08-24 03:25] VITALS: BP 159/96
--- NOTE | 2019-08-24 13:25 | NUR ---
Pt. alert and sitting in chair in room. Tooks meds with the exception of miralax which she refused. States she had a soft, formed bowel movement this am. Denies pain, SI/HI. States she is planning a strategy. Refuses physical assessment stating she finds it intrusive. States she has done fine without one. Rationale for assessment explained. Pt. remains adamant in refusal of assessment. Patient calm and firm without any s/o distress. Ambulates to room and back without difficulty. Showered and changed clothes this AM with the assistance of JONNA.
[2019-08-24 15:19] VITALS: BP 117/76
[2019-08-24 20:00] VITALS: BP 133/76
--- NOTE | 2019-08-24 20:23 | NUR ---
ASSUMED CARE OF PATIENT ON 08/24/19 @ 19:15. IN BED EYES OPEN, HRRR, LUNGS CTA BS NORMOACTIVE X 4 Q. REPORTS WORRY ABOUT PAYING FOR HER HOSPITAL BILL. PROCESS FOR INSURANCE PAYMENT AND MISSILE PAD MECHANIC ADVISING WITH COORDINATION OF PAYMENT PLAN WITH BILLING EXPLAINED. GOT OUT OF BED AND SITTING IN THE DAY ROOM.
[2019-08-24 23:51] VITALS: BP 133/76
--- NOTE | 2019-08-25 05:23 | NUR ---
SLEPT 10.4 HOURS OVERNIGHT
[2019-08-25 09:03] VITALS: BP 113/72
[2019-08-25 14:27] VITALS: BP 113/72
--- NOTE | 2019-08-25 16:02 | NUR ---
THE PATIENT AMBULATES WITH A STEADY GAIT. SHE IS PLEASANT, CALM AND QUIET. SHE HAS BEEN COOPERATIVE AND COMPLIANT WITH MEDICATIONS AND HER HEALTH CARE REGIMEN. THE PATIENT IS ALERT AND ORIENTED X4. SHE IS TO HAVE A VALPROIC ACID LAB DRAW THIS EVENING AT 1800. SHE DENIES SI AND HI. ENCOURAGE FLUIDS PO. UNEQUAL PUPILS. PATIENT IS A POSSIBLE DISCHARGE Monday08/26/2019. CONTINUE TO MONITOR THE PATIENT.
[2019-08-25 19:15] VITALS: BP 133/75
--- NOTE | 2019-08-26 01:25 | NUR ---
ASSUMED CARE @ 19:15 ON 08/25/19. RECEIVED A PHONE CALL AND SPOKE WITH FAMILY ON PHONE. SON VISITED THIS EVENING. PLEASANT, COOPERATIVE AND COMPLIANT WITH CARE. TOOK MEDS WHOLE WITH WATER. AMBULATES TO TOILET, HAS URINE DRIBBLES AT TIMES. BED IN LOW POSITION, BED LOCKED. WILL CONTINUE TO MONITOR Q 12 MINUTES FOR PATIENT SAFETY.
[2019-08-26 01:32] VITALS: BP 133/75
--- NOTE | 2019-08-26 05:38 | NUR ---
SLEPT 9 HOURS OVERNIGHT.
--- NOTE | 2019-08-26 07:30 | NUR ---
Assumed care of patient this am. Patient in good spirits and she is anticipating discharge. Patients affect normal. Patient ambulates without assistance. Patient takes medications whole. Patient assessment shows clear breath sounds bilaterally and active bowel sounds. Heart tones s1 and s2 present. Patient is calm, content, and pleasant.
[2019-08-26 08:00] VITALS: BP 138/82
[2019-08-26 08:09] VITALS: BP 138/82
--- NOTE | 2019-08-26 13:57 | NUR ---
RIOS contacted pt's son Eduardo about d/c tomorrow and asked if 1130 was an okay time to d/c. RIOS told him that was okay. He mentioned that he is looking to move his mom to a facility with casemanagement (psych).
[2019-08-26 20:18] VITALS: BP 155/92
--- NOTE | 2019-08-27 02:01 | NUR ---
ASSUMED CARE ON 08/26 @ 19:15. IN DAY ROOM, SITTING ON THE SOFA WATCHING TV AND SOCIALIZING WITH PEERS. RECEIVED A PHONE CALL FROM DAUGHTER, TOOK THE CALL IN HER ROOM. DAUGHTER CALLED LATER AND ASKED TO SPEAK TO DR. MEREDITH. MESSAGE GIVEN TO DOCTOR REGARDING DAUGHTERS CONCERNS ABOUT DISCHARGE. VALPORIC ACID LEVELS AND DEPAKOTE DOSAGE DISCUSSED, EDUCATION PROVIDED. PATIENT IS COMPLIANT WITH MEDICATIONS ADMINISTRATION, TAKES PO MEDS WHOLE WITH WATER. DENIES SI AND HI. DENIES A/V HALLUCINAITONS. REPORTS IS LOOKING FORWARD TO LEAVING HOSPITAL. BED IN LOW POSITION, BED ALARM ON, WILL CONTINUE TO MONITOR Q 12 MINUTES FOR PATIENT SAFETY.
[2019-08-27 04:35] VITALS: BP 155/92
--- NOTE | 2019-08-27 05:47 | NUR ---
SLEPT 9 HOURS OVERNIGHT
--- NOTE | 2019-08-27 07:30 | NUR ---
Assumed care of patient this am. Patient in good spirits. Patient calm, content, and pleasant looking forward to discharge. Patient ambulates without assistance. Patient denies pain at this time. Patient takes medications whole and is adherent to scheduled times. Patient assessment shows clear breath sounds and active bowel sounds. Heart tones s1 and s2 present. Patient is scheduled to discharge today.
[2019-08-27 08:00] VITALS: BP 101/56
[2019-08-27 09:04] VITALS: BP 101/56
[2019-08-27 10:19] VITALS: BP 101/56
[2019-08-27] MEDS ORDERED: DIVALPROEX SOD500 M1 PO (10:29)
[2019-08-27] MEDS ORDERED: ZYPREXA 5 MG TAB5 M1 PO (10:30)
[2019-08-27] MEDS ORDERED: MIRALAX17 GM PO (10:31)
[2019-08-27] MEDS ORDERED: VITAMIN D5000 UNIT PO (10:32)
--- NOTE | 2019-08-27 12:19 | NUR ---
RIOS D/C note Pt will d/c home today. She has declined home health services. RIOS contacted [facility] ([phone]) and scheduled an appointment for psychiatric follow up with Dr. Monica Wiseman on 09/10/2019 @ 8am. RIOS contacted pt's son Eduardo who had concern about his mom being d/c before being "100%" back to normal. RIOS and psych doctor explained to Eduardo that pt cannot be held inpatient; she would like to go home and has denied any additional services. Psych doctor did explain that he submitted the document Eduardo's litigation attorney sent for guardianship of pt. Eduardo said he understood. RIOS gave Eduardo details of pt's appointment. He agreed to take her. Psych doctor explained to Eduardo that pt needs to get her blood drawn for Depakote levels on 09/03/19 around 1600. Eduardo also agreed to that. RIOS provided an update to pt about her appts. Pt agreed to take her meds as prescribed and keep her appts. No other needs for SW team to address at this time.
--- NOTE | 2019-08-27 12:32 | NUR ---
Patient discharged at 1225. Patient was given discharge instructions and verbalized understanding. Patient left via wheel chair and was taken down to 2nd floor emergency parking with her son who drove her home. Patient left with all of her belongings that she came in with.
--- NOTE | 2019-08-27 12:35 | NUR ---
Patients daughter called this morning stating that she felt like her mothers mental status was unstable. The daughter (Xin Dickey) stated that Mrs. Viramontes would not be willing to take her medications post discharge and that compliance would be an issue. Xin stated that the doctor would be liable if the patient was not ready to discharge.
--- NOTE | 2019-08-29 15:52 | D ---
[facility] [place] [address] DISCHARGE SUMMARY Name: JOSÉ MANUEL FLORES Room #: 523B-B DIS IN M.R.#: [id number] Admission: 08/13/19 Attend Phys: Mario Dixon DO Discharge: 08/27/19 Date of : 49 Report #: [id number] THIS REPORT FOR: //name// CC: Mario Dixon Vincent Shielao DATE OF SERVICE: 08/27/2019 INPATIENT PSYCHIATRIC DISCHARGE SUMMARY ATTENDING PHYSICIAN: Mario Dixon DO INDUSTRIAL SERVICES WORKER AT TIME OF DISCHARGE: Flaquita Szymanski MD DISCHARGE DIAGNOSES: Bipolar 1 disorder, most recent episode manic with psychotic features, improved. Medical comorbidities for this visit include hypothyroidism, on thyroid replacement, obesity, vitamin D deficiency. She had diarrhea, which resolved, and urinary tract infection, treated with antibiotics, restless legs syndrome, on pramipexole. DISCHARGE PLAN: She is discharged to her home. She is on a 2 gram and a sodium-restricted diet. She is instructed to get Depakote levels done at 09/03/2019 at 4 p.m. She has an appointment with Dr. Mario Robledo at 8 a.m. on 09/10/2019 at [facility] [place], phone number [phone]. I will fax dictated discharge summary to Dr. Mario Robledo for his review, assistance in management of this patient. DISCHARGE MEDICATIONS: Olanzapine 5 mg p.o. b.i.d., Depakote sodium extended release 1500 mg p.o. at bedtime, cholecalciferol 5000 international units p.o. daily, levothyroxine 25 mcg p.o. daily for hypothyroidism, Depakote was for mood stabilization, olanzapine for psychosis, vitamin D supplementation, polyethylene glycol 17 g p.o. twice per day, hold if diarrhea for bowel motility. During the admission, her pramipexole was stopped as well as nabumetone due to excess pharmacy and minimal symptoms and treatment. REASON FOR ADMISSION: Medication refusal, decompensation and thought process, poor judgment. HOSPITAL COURSE: The patient was admitted to Geriatric Psychiatry Unit. She was a voluntary patient. Initially, she was very picky about what medicines she would take. We had attempted to treat her at her request on antipsychotic. I believe we had her on Tegretol regimen. She found this intolerable stomach upset, etc. Family was upset about lack of progress. We had a family meeting. The patient changed her mind to accept a Depakote therapy as well as olanzapine [address] [address] DISCHARGE SUMMARY Name: JOSÉ MANUEL FLORES Room #: 523B-B [facility] IN M.R.#: [id number] Admission: 08/13/19 Attend Phys: Mario Dixon, Discharge: 08/27/19 Date of : 49 Report #: [id number] and her last blood level was 56, that was 1000 mg ER increased to 1500 mg ER and she will need to get a blood level done on 09/03/2019. At the time of discharge, the patient was not suicidal or homicidal. She was fully oriented and felt to be able to progress in the least restricted setting. I should add her son and [id number] are interested in pursuing guardianship, I recieved interrogatory completed and I did fax back to Ngoc Miller. . Overall, I do feel it would be an enhancement for the patient to be under guardianship. It should be noted her SLUMS score was an 18/30. This was done earlier in her admission. I do think she is in the mild neurocognitive disorder range and will need to be under increased surveillance anyways for evolution to dementia over the next 12 months. PERTINENT LABORATORY DATA: This admission include CBC within normal limits. Chemistry showed glucose slightly high at 125, creatinine 1.1. Vitamin B12 level was 490, so that is borderline with supplement. Vitamin D was good at 43.6. TSH is 1.955. IMAGING THIS ADMISSION: None. Her last head MRI was on 04/02/2019, which was read as atrophy. No intracranial abnormalities or mass effect. Urine was positive for Enterococcus faecalis infection and the patient was successfully treated with Keflex. PHYSICAL EXAMINATION: VITAL SIGNS: At the time of discharge, temperature 36.9, pulse 86, respirations 15, BP 101/56. MUSCULOSKELETAL: Normal gait and station. MENTAL STATUS EXAMINATION: This is a well-developed, obese female appearing at least stated age, slightly disheveled. The patient's attention intact. Concentration intact. Speech normal rate, volume and tone. Thought process is linear and goal directed. Thought content focused on discharge. No psychomotor agitation. No psychomotor retardation. She denied suicidal or homicidal ideations. Denied hopelessness or helplessness. Memory not formally tested on the day of discharge. Insight fair to limited. Judgment fair. Fund of knowledge, no greater than average. PROGNOSIS: For this patient is fair to guarded and will depend on her ability to continuing care and be medication compliant. Also, if guardianship is granted, I would think this would enhance or rather improve the long-term prognosis. <ELECTRONICALLY SIGNED> By: Mario Dixon, 08/29/19 [id number] Mario Dixon DO /nt
== END 2019-08-27 12:25 | disposition home or self-care (01) | DRG 885 ==
LOC: ER 12:56 → SBH 14:53 → EROBS 14:53 → SBH 14:53
PROVIDERS: Nurse Practitioner Family; ADMIT Psychiatry & Neurology Psychiatry
DX: F31.2 Bipolar disorder, current episode manic severe with psychotic features (principal); N39.0 Urinary tract infection, site not specified; E03.9 Hypothyroidism, unspecified; E66.9 Obesity, unspecified; Z68.38 Body mass index [BMI] 38.0-38.9, adult; E55.9 Vitamin D deficiency, unspecified; G25.81 Restless legs syndrome; N19 Unspecified kidney failure; R27.0 Ataxia, unspecified; Z60.2 Problems related to living alone; R19.7 Diarrhea, unspecified; G31.84 Mild cognitive impairment of uncertain or unknown etiology; Z90.710 Acquired absence of both cervix and uterus; Z91.81 History of falling; Z88.8 Allergy status to other drugs, medicaments and biological substances
CPT/HCPCS: 10880

== ENCOUNTER 2020-01-06 22:18 | Inpatient (IN) | payer OTHER ==
[~2020-01-06] VITALS: Ht 162.6 cm; Wt 117.3 kg
[~2020-01-06 22:18] MED LIST changes: +DIVALPROEX SOD500 M1 PO; +VITAMIN D5000 UNIT PO; +ZYPREXA 5 MG TAB5 M1 PO
[2020-01-06 22:19] VITALS: BP 101/55
[2020-01-06] MEDS ORDERED: BENZONATATE100 MG PO (22:50)
[2020-01-06] MEDS ORDERED: OLANZAPINE10 M1 PO (22:51)
[2020-01-06] MEDS ORDERED: BENZTROPINE MES1 MG PO (22:51)
[2020-01-06] MEDS ORDERED: MIRAPEX1 MG PO (22:52)
[2020-01-06] MEDS ORDERED: CEFUROXIME250 MG PO (22:52)
[2020-01-06 23:03] LABS: HEMATOCRIT 39.2 % (37.0-47.0); HEMOGLOBIN 13.1 gm/dL (12.0-15.0); MCH 31.7 pg (26.0-34.0); MCHC 33.3 g/dL (28.0-37.0); MCV 95.3 fL (80.0-100.0); RBC 4.11 mil/uL (4.20-5.00); RDW 13.6 % (10.5-14.5); WBC 15.9 thou/uL (4.0-11.0)
[2020-01-06 23:06] LABS: ANION GAP 10 mmol/L (7-16); BUN 14 mg/dL (7-18); CALCIUM 8.8 mg/dL (8.5-10.1); CHLORIDE 100 mmol/L (98-107); CO2 26 mmol/L (21-32); CREATININE 1.2 mg/dL (0.6-1.0); GLUCOSE 151 mg/dL (74-106); POTASSIUM 3.3 mmol/L (3.5-5.1); SODIUM 136 mmol/L (136-145)
[2020-01-06 23:16] LABS: TROPONIN-I <0.06 ng/mL (<0.06)
[2020-01-07] VITALS (7 sets, daily range): BP systolic 91–114; BP diastolic 53–68
--- NOTE | 2020-01-07 01:27 | NUR ---
ARRIVED ON THE FLOOR AR 0115. SHE SAYS SHE IS UNPLEASED ABOUT HER MEDICATIONS THAT SHE WAS GIVEN FOR HER COLD SYMPTOMS. SHE ALSO SAYS THAT SHE REFUSED TO TAKE A FLU VACCINE THIS PAST FALL. REFUSES TO TAKE PNEUMONIA VACCINES WELL. SHE LIVES IN AN APARTMENT ALONE, HER BODY HABITUS IS POOR. SHE IS VERY STIFF AND SHE IS UNABLE TO TURN INDEPNDANTLY IN BED SIDE TO SIDE. SHE NEEDS A MAXIMUM ASSIST OUT OF BED. SHE IS VERY UNSTEADY AND WEAK. SHE IS REQUIRING 4.0 LITERS OF OXYGEN TONIGHT TO KEEP HER O3SAT GREATER THAN 94%. SHE FELL TWICE TONIGHT. SHE RELATES THAT HER WEAKNESS WAS TOO PROFOUND TO BE COMPENSATED BY HER WALKER. SHE DENIES PRIOR FALLS AT HOME. DENIES PAIN IN HIPS KNEES, DENIES HITTING HER HEAD AT TME OF FALL. SHE IS TALKING WITH THE COSTUME DRAPER AT THIS TIME. SHE IS COMPLAINING OF HER COUGH AND SYMPTOMS.
[2020-01-07 06:41] LABS: HEMATOCRIT 37.3 % (37.0-47.0); MCH 30.8 pg (26.0-34.0); MCHC 32.1 g/dL (28.0-37.0); RBC 3.89 mil/uL (4.20-5.00); RDW 13.8 % (10.5-14.5); WBC 15.1 thou/uL (4.0-11.0)
[2020-01-07 06:58] LABS: CALCIUM 7.9 mg/dL (8.5-10.1); POTASSIUM 3.9 mmol/L (3.5-5.1)
[2020-01-07 10:19] LABS: URINE BILIRUBIN NEGATIVE (Negative); URINE BLOOD 1+ (Negative); URINE CLARITY CLEAR; URINE COLOR YELLOW; URINE GLUCOSE-RANDOM* NEGATIVE (Negative); URINE KETONES 2+ (Negative); URINE LEUKOCYTES-REFLEX NEGATIVE (Negative); URINE NITRITE-REFLEX NEGATIVE (Negative); URINE PROTEIN (DIPSTICK) NEGATIVE (Negative); URINE UROBILINOGEN 0.2 E.U./dl (0.2-1.0)
[2020-01-07 10:31] LABS: SQUAMOUS >10 Many /LPF (0-3); TRANSITIONAL EPITHEL CELL 0-3 Few /LPF (None Seen)
[2020-01-07 10:32] LABS: CASTS None Seen /LPF (None Seen); CRYSTALS None Seen /LPF (None Seen); URINE RBC 3-10 Few /HPF (0-2); URINE WBC-REFLEX 0-5 Rare /HPF (0-5)
[2020-01-07 10:33] LABS: RENAL EPITHELIAL CELLS 0-3 Few /LPF (None Seen)
--- NOTE | 2020-01-07 10:52 | NUR ---
Per Dr. Barrett, RN to call pharmacy and confirm medication doses. Psych meds on med rec are accurate per [facility] pharmacy on file.
--- NOTE | 2020-01-07 15:40 | NUR ---
ASSUMED CARE APPROX 0700. PT STILL WITH WEAKNESS TODAY. PT COMPLAINS OF DIARRHEA THAT STARTED PRIOR TO ADMISSION. PER ORDERS FROM DR. SIMS A C-DIFF SAMPLE WAS OBTAINED. CURRENTLY WAITING ON RESULTS. PT PLACED IN PROPER ISOLATION. PT HAS HAD SEVERAL LOOSE, WATERY STOOLS TODAY. NO ACUTE CHANGES NOTED. PT TITRATED DOWN TO 1LNC. PT/OT ORDERED. WILL CONTINUE TO MONITOR. PT SLOWLY PROGRESSING TOWARDS PLAN OF CARE GOALS.
--- NOTE | 2020-01-07 16:11 | NUR ---
INITIAL ASSESSMENT: Received consult. SW reviewed chart and spoke with nursing and attending physician. Pt was admitted from home due to debility/pneumonia. Pt was on [facility] unit in July of 2019. Pt sees Dr. Monica Wiseman at [facility] for outpatient psych follow up. SW met with pt at bedside. Introduced role of SW. Pt is alert/orientated x 4 and reports that she lives at home alone. Prior to admission, pt was independent with ADLs. Pt states she has a cane and walker at home. 10 steps to enter the home. No steps inside. Pt has used [facility] in the past for hH services. Pt's PCP is Dr. Brown. Pt is agreeable with post-acute placement if needed. Awaiting therapy recommendations. SW is following to assist as needed with discharge planning.
--- NOTE | 2020-01-07 17:20 | EKG ---
[facility] [place] [address] ELECTROCARDIOGRAM REPORT Name: JOSÉ MANUEL FLORES Room #: 354-P ADM IN M.R.#: [id number] Admission: 01/07/20 Attend Phys: Reginald Barrett MD Discharge: Date of : 49 Report #: [id number] THIS REPORT FOR: cc: Vincent Brown James A. DO Couchonnal, Luis F. MD ~ THIS REPORT FOR: //name// [facility] ED Test Date: 2020-01-06 Test Time: 23:08:30 Pat Name: JOSÉ MANUEL FLORES Department: Room: 354 Gender: F Film Editor: YUDY : 1945 Requested By: Isidro Rosenberg Order Number: [id number] MD: Huy Pena Measurements Intervals [place] Rate: 94 P: 26 IN: 159 QRS: -41 QRSD: 76 T: 20 QT: 390 QTc: 488 Interpretive Statements Sinus rhythm Abnormal R-wave progression, late transition Inferior infarct, old Compared to ECG 08/13/2019 14:26:32 Left-axis deviation no longer present Prolonged QT interval no longer present Myocardial infarct finding still present Electronically Signed On 01-07-2020 17:18:56 CDT by Huy Pena [email or web address] <ELECTRONICALLY SIGNED> By: Huy Pena MD 01/07/20 1718 07 07 Huy Pena MD /EPI
--- NOTE | 2020-01-08 00:57 | NUR ---
ASSUMED CARE AT 1900, ASSESSMENT COMPLETED. PT DENIES PAIN OR NAUSEA. REPORTS IMPROVEMENT IN SOB, DRY/NONPRODUCTIVE COUGH. UP TO BSC SEVERAL TIMES FOR LOOSE STOOLS. CALLS APPROPRIATELY FOR ASSISTANCE. REPORT GIVEN AT 2300, PT IN STABLE CONDITION.
--- NOTE | 2020-01-08 03:10 | NUR ---
TOOK OVER CARE AT 2330. ASSESSMENT CHARTED, MEDS GIVEN CHARTED. PATIENT RESTING IN BED DURING SHIFT. UP TO BSC WITH ASSIST X 1. INCONTINENT OF BOWEL, MULTIPLE BOWEL MOVEMENTS. ISOLATION IN PLACE. FALL PRECAUTIONS IN PLACE. VSS. PLAN OF CARE IS TO CONTINUE ANTIBIOTIC TREATMENTS FOR PNEUMONIA.
[2020-01-08 04:30] VITALS: BP 115/70; BP 117/72
[2020-01-08 08:11] VITALS: BP 110/67
--- NOTE | 2020-01-08 15:07 | NUR ---
SW reviewed chart and spoke with nursing and attending physician. Pt is progressing towards goals for discharge. Discharge home with [facility] anticipated for tomorrow. [facility]. SW is following to assist as needed with discharge planning.
[2020-01-08 16:25] VITALS: BP 114/66
--- NOTE | 2020-01-08 18:53 | NUR ---
PT A&OX4. IV INTACT INR AC INFUSING NS@75/HR. TRANFERS WITH ASSIST/WALKER X 1. C-DIFF IS POS. PT SATING @97% ON RA. HAVING LOOSE STOOLS. WILL CONT POC.
[2020-01-08 19:42] VITALS: BP 113/71
[2020-01-09 01:57] LABS: ABSOLUTE NEUTROPHILS 10.2 thou/uL (1.4-8.2); BASOPHILS 0.2 % (0.0-2.0); EOSINOPHILS 0.1 % (0.0-3.0); HEMATOCRIT 36.2 % (37.0-47.0); HEMOGLOBIN 11.6 gm/dL (12.0-15.0); LYMPHOCYTES 12.8 % (24.0-44.0); MCH 31.1 pg (26.0-34.0); MCHC 32.2 g/dL (28.0-37.0); MCV 96.8 fL (80.0-100.0); MONOCYTES 9.9 % (1.0-8.0); PLATELET COUNT 330 thou/uL (150-400); RBC 3.74 mil/uL (4.20-5.00); RDW 14.2 % (10.5-14.5); WBC 13.3 thou/uL (4.0-11.0)
[2020-01-09 03:47] VITALS: BP 138/81
--- NOTE | 2020-01-09 06:24 | NUR ---
ASSUMED CARE AT 1900. OBTAINED ORDER TO START PT ON PO VANCO FOR POSITIVE C.DIFF LAB. PT DENIES PAIN OR NAUSEA. REPORTS IMPROVED SOB BUT STILL WINDED WITH ACTIVITY. C/O DRY, NONPROD COUGH, GAVE ONE DOSE OF DELSYM OVERNIGHT. UP TO BSC SEVERAL TIMES, HAD THREE VERY SMALL LOOSE STOOLS. POSSIBLE D/C TODAY WITH HH, NO OTHER CONCERNS, WILL CONTINUE TO MONITOR.
[2020-01-09 07:31] VITALS: BP 129/83
--- NOTE | 2020-01-09 14:40 | NUR ---
RIOS reviewed chart and spoke with nursing and attending physician. Pt is progressing towards goals for discharge. Pt placed in isolation due to c.diff. [facility] consult ordered. SW discussed case with [facility] rehabilitation team lead, who states they are able to accept pt tomorrow. RIOS met with pt at bedside to provide update and discuss discharge plan. Pt is aware and agreeable with discharge plan. Pt states she will notify her family. RIOS is follwoing to assist as needed with discharge planning.
[2020-01-09 15:32] VITALS: BP 140/78
--- NOTE | 2020-01-09 16:00 | NUR ---
PT ON AND OFF COMMODE FREQENTLY. TRANSFER IS SAFE.
--- NOTE | 2020-01-09 18:34 | NUR ---
PT PROGRESSING TOWARDS GOALS. PLAN FOR REHAB IN AM.
[2020-01-09 19:11] VITALS: BP 153/70
[2020-01-10 03:35] VITALS: BP 163/93
--- NOTE | 2020-01-10 06:11 | NUR ---
ASSUMED CARE AT 1900. PT DENIES PAIN OR NAUSEA. CONTINUES TO REPORT IMPROVEMENT OF BREATHING, THOUGH STILL SOB WITH ACTIVITY. SLIGHTLY MORE IMPULSIVE OVERNIGHT, NOT CALLING FOR HELP TO GET UP TO BSC AND SETTING BED ALARM OFF. RIGHT AC INFILTRATED; REMOVED IV AND NEW ONE STARTED IN THE LEFT HAND. NO OTHER CONCERNS, PLAN FOR D/C TO [facility] TODAY, WILL CONTINUE TO MONITOR.
[2020-01-10 08:08] VITALS: BP 141/80
[2020-01-10] MEDS ORDERED: NYAMYC15 GM TOP (08:28)
[2020-01-10] MEDS ORDERED: FIRVANQ50 MG/1 ML PO (08:28)
[2020-01-10] MEDS ORDERED: PREDNISONE 20 M20 MG PO (08:28)
[2020-01-10] MEDS ORDERED: CEFDINIR300 MG PO (08:28)
[2020-01-10] MEDS ORDERED: ACIDOPHILUS1 EAC4 PO (08:28)
--- NOTE | 2020-01-10 11:09 | NUR ---
PT CARE ASSUMED AT 0700, PT ALERT AND ORIENTED X3. PT DENIES ANY PAIN, NAUSEA AND VOMITING, NO SIGNS OF DISTRESS NOTED. ASSESSMENT COMPLETED. CALL LIGHT AND TABLE IN REACH, BED ALARM ON. WILL CONTINUE TO MONITOR.
--- NOTE | 2020-01-10 14:33 | NUR ---
DISCHARGE NOTE: SW reviewed chart and spoke with nursing and attending physician. Pt is medically stable for discharge to today. Final discharge orders/summary completed. SW notified [facility] liasion, who confirms they are able to accept pt today. Pt is aware and agreeable with discharge plan. Rehab CM to follow and assist as needed with discharge planning.
[2020-01-10 15:14] VITALS: BP 151/77
[2020-01-10 15:37] VITALS: BP 151/77
[2020-01-10 16:58] VITALS: BP 151/77
--- NOTE | 2020-01-10 19:37 | NUR ---
193 REPORT GIVEN TO SARAH ONEIL NYSTATIN POWDER AND VANCOMYCIN GIVEN TO [facility] RN. PT BELONGING PACKED AND SENT DOWN TO [facility].
== END 2020-01-10 19:43 | DRG 189 ==
LOC: ER 22:18 → 3W 01-07 00:28 → EROBS 01-07 00:28 → 3W 01-07 00:28
PROVIDERS: Emergency Medicine; Nurse Practitioner Family; ADMIT Hospitalist
DX: J96.01 Acute respiratory failure with hypoxia (principal); A41.9 Sepsis, unspecified organism; J18.9 Pneumonia, unspecified organism; R65.20 Severe sepsis without septic shock; Z68.44 Body mass index [BMI] 60.0-69.9, adult; F31.9 Bipolar disorder, unspecified; J45.909 Unspecified asthma, uncomplicated; R53.81 Other malaise; R29.6 Repeated falls; R32 Unspecified urinary incontinence; E87.6 Hypokalemia; E66.9 Obesity, unspecified; Z23 Encounter for immunization; Z87.440 Personal history of urinary (tract) infections; Z91.5 Personal history of self-harm; Z79.899 Other long term (current) drug therapy; Z88.8 Allergy status to other drugs, medicaments and biological substances
CPT/HCPCS: 10879

== ENCOUNTER 2020-01-10 10:29 | Inpatient (IN) | payer OTHER ==
[~2020-01-10] VITALS: Ht 162.6 cm; Wt 108.9 kg
[~2020-01-10 10:29] MED LIST changes: +ACIDOPHILUS1 EAC4 PO; +BENZONATATE100 MG PO; +CEFDINIR300 MG PO; +CEFUROXIME250 MG PO; +FIRVANQ50 MG/1 ML PO; +NYAMYC15 GM TOP; +OLANZAPINE10 M1 PO; +PREDNISONE 20 M20 MG PO
--- NOTE | 2020-01-10 21:05 | NUR ---
ASSUMED CARE OF PT AT 1930. RECEIVED REPORT FROM PREVIOUS NURSE PRIOR TO ADMISSION TO UNIT. ADMISSION EDUCATION PROVIDED, ADMISSION VITAL SIGNS, AND WEIGHT OBTAINED. HR REGULAR, LUNG SOUNDS CLEAR IN ALL LOBES, NON-PRODUCTIVE COUGH NOTED, PT COMPLAINT IS THAT COUGH IS FREQUENT AND IS "PAINFUL", BOWEL SOUNDS ACTIVE IN ALL QUADRANTS. SPECIAL CONTACT FOR C-DIFF. MEDICATIONS FAXED TO PHARMACY. FALL PRECAUTIONS IN PLACE. NURSING WILL CONTINUE TO MONITOR.
[2020-01-10 21:38] VITALS: BP 139/83
--- NOTE | 2020-01-11 05:50 | NUR ---
ASSUMED PT CARE AT 1930. ADMISSION DONE BY DAY RN. PT DENIES PAIN. UP TO BESIDE COMMODE WITH 2 PERSON ASSIST. FREQ LOOSE STOOLS, SOME EPISODES OF BOWEL INCONTINENCE. EDEMA OF BLE. FREQ AND PERSISTANT COUGH. CALLS APPROPRIATELY. PM MEDS GIVEN PER ORDER. CURRENTLY RESTING COMFORTABLY IN BED, WILL CONTINUE TO MONITOR.
[2020-01-11 06:12] LABS: HEMATOCRIT 39.5 % (37.0-47.0); HEMOGLOBIN 12.8 gm/dL (12.0-15.0); MCH 31.1 pg (26.0-34.0); MCHC 32.5 g/dL (28.0-37.0); MCV 95.7 fL (80.0-100.0); RBC 4.13 mil/uL (4.20-5.00); RDW 14.1 % (10.5-14.5); WBC 16.5 thou/uL (4.0-11.0)
[2020-01-11 06:23] LABS: CALCIUM 8.5 mg/dL (8.5-10.1); CREATININE 0.8 mg/dL (0.6-1.0); POTASSIUM 4.7 mmol/L (3.5-5.1)
[2020-01-11 08:00] VITALS: BP 109/85
--- NOTE | 2020-01-11 16:01 | NUR ---
PT RESTING IN BED. WAS UP FOR BREAKFAST AND LUNCH. PT TOOK SHOWER THIS AN WAS WORKING WITH THERAPY THIS AM. WAS PART OF THERAPY. PT HAVING LOOSES STOOLS. ISOLATION FOR C-DIFF. NYSTATIN UNDER BREASTS AND ABD FOLDS, PT CONTINENT USING BSC.PT PLEASANT AND COOPERATIVE WITH CARE.
--- NOTE | 2020-01-11 17:42 | NUR ---
PT IN ROOM EATING DINNER HAS DEBO PO ABT GIVEN AT THIS TIME. PT ALRT XS 4. PLEASANT AND COOPERATIVE WITH CARE.
[2020-01-11 19:54] VITALS: BP 165/89
--- NOTE | 2020-01-12 00:42 | NUR ---
PT ALERT AND ORIENTED X 4. UP TO BSC WITH ASSIST X 1. SMALL LOOSE BROWN STOOL X 1. VOIDING ADEQUATE AMTS YELLOW URINE. PT DENIES PAIN OR DISCOMFORT. BED ALARM ON FOR SAFETY. PT APPEARS TO BE SLEEPING ON HOURLY ROUNDS.
--- NOTE | 2020-01-12 17:22 | NUR ---
ASSUMED CARE OF PT AT 0710. PT IS A&0X4. IS ON ROOM AIR. IS STABLE. IS UP WITH 1 ASSIST, GB, WALKER. FALL PRECAUTIONS & HOURLY ROUNDING MAINTAINED. DENIES PAIN. LABS & VITALS REVIEWED. REMAINS ON SPECIAL CONTACT ISOLATION PRECAUTIONS FOR C-DIFF. PT IS CURRENTLY IN ROOM EATING DINNER. CALL LIGHT WITHIN REACH. WILL CONTINUE TO MONITOR. FLUIDS ENCOURAGED.
--- NOTE | 2020-01-12 17:24 | NUR ---
PT DAUGHTER CALLED TO SPEAK WITH THIS NURSE REGARDING MOTHER'S CURRENT STATUS. SHE IS THE PT'S DPOA, BUT LIVES OUT OF TOWN IN [place]. SHE IS CONCERNED THAT THE BROTHER IS VISITING MOTHER & MAY HAVE BEEN EXPOSED TO COVID-19. HE HAS HAD & HAS BEEN TREATED FOR PNUEMONIA FOR OVER A MONTH & WORKS A [employer]ER[employer]. HE HAS NOT TRAVELED OUTSIDE THE [place], BUT SHE IS NOT SURE IF HE MAY HAVE COME IN CONTACT WITH ANYONE WHO HAS. THE DAUGHTER REQUESTED THAT HER MOM BE TESTED. THE DOCTOR WAS NOTIFIED. THE DOCTOR'S RESPONSE WAS THAT HER MOTHER'S SYMPTOMS DID NOT WARRANT TESTING AT THIS TIME. THE DAUGHTER WAS NOTIFIED & REQUESTED TO SPEAK WITH THE DOCTOR. THE DOCTOR SPOKE TO HER & RETURNED A CALL TO THIS NURSE. THE RESPONSE WAS FOR THE PT'S SON TO NOT RETURN TO VISIT THE HOSPITAL UNTIL HE HAS TESTED NEGATIVE FOR THE VIRUS. THIS NURSE TO NOTIFY THE SON. WILL CONTINUE TO MONITOR PT.
[2020-01-12 20:18] VITALS: BP 114/68
[2020-01-13 08:00] VITALS: BP 135/72
--- NOTE | 2020-01-13 10:15 | NUR ---
cm tried to visit pt x 2 and cont to be working with bedside staff or therapy. will cont following as needed for dc needs.
--- NOTE | 2020-01-13 11:55 | NUR ---
Nutrition: Assessed due to consult for diet instructions. Pt on rehab for medical complexity w/ generalized debility (initial admit: acute respiratory failure secondary to pneumonia/asthma exacerbation). Hx: bipolar disorder, asthma, obesity. CBW 257# places BMI at 43.3 kg/m2 - class III obesity. Pt in isolation for +c. diff; on oral antibiotics. On interview, pt reports stool frequency is much less (per EMR 4 stools on 01/10, only 2 on 01/11). Pt on a Low Fiber diet. RD provided education for what this means, what foods should be temporarily avoided and how fruits/vegetables will be soft/cooked, to choose white/refined grains in the interim. Pt was eating sporadically, slightly lower amounts on 01/09 - 01/10 at 25-90% meals, but ate 100% of all 3 meals yesterday. Reports excellent food choices/taste. Pt declined need for further education regarding any other health issues. Encouraged pt to notify RN if she changes her mind and nutrition ed needed. Otherwise low nutrition risk.
--- NOTE | 2020-01-13 18:15 | NUR ---
ASSUMED CARES AT 0700. PT AWAKE, ALERT AND ORIENTED*4. C/O MILD SAMIR KNEE PAIN, IMPROVED WITH REPOSITIONING. VITALS REMAIN STABLE. ISOLATION MAINTAINED. LS CLEAR/DIM, NO WHEEZES NOTED. ON RA WITH O2 SAT >95%. PT COUGHING, STATED THAT SHE HAD DRANK COLD WATER WHICH CAUSED THE COUGH, WILL CONTINUE TO MONITOR. MULTIPLE STOOLS NOTED TODAY WITH INCREASED URINATION, VANCOMYCIN ADMINISTERED PER ORDER. PIV ON LEFT HAND DC'D. PT UP WITH 1 MIN ASSIST, GB AND WALKER AND TOLERATED WELL. Q1H VISUAL CHECKS. CALL LIGHT WITHIN REACH. FALL PRECAUTIONS IN PLACE
[2020-01-13 19:55] VITALS: BP 136/76
--- NOTE | 2020-01-13 21:47 | NUR ---
PT DAUGHTER CALLED AT APPROX 2144 & STATED, "I'M REALLY CONCERNED BECAUSE I TALK TO MY MOM ALL THE TIME & SHE IS HAVING A MORE DIFFICULT TIME BREATHING. I AM CONCERNED BECAUSE SHE HAS NOT HAD A BREATHING TREATMENT ALL DAY. I WOULD LIKE TO LEAVE A MESSAGE FOR THE DOCTOR TO CALL ME TOMORROW TO REQUEST THAT SHE HAS A CT OF HER CHEST TO RECHECK FOR PNUEMONIA. I KNOW THAT THEY CAN TELL IF SHE HAS THE GRAHAM VIRUS ALSO WITH THAT". THERAPEUTIC COMMUNICATION USED WITH DAUGHTER. I INFORMED THE DAUGHTER THAT THIS NURSE HAD BEEN IN MOMS ROOM SEVERAL TIMES & HAD BEEN IN COMMUNICATION WITH HER. SHE WAS IN NAD. THE DAUGHTER WAS INFORMED THAT PT HAS BREATHING TREATMENTS Q4H PRN. SHE STATED, "I WOULD LIKE TO ASK THE DOCTOR IF HE/SHE COULD SCHEDULE THEM". I INFORMED THE DAUGHTER THAT I HEAR HER CONCERNS & WOULD MAKE SURE THAT THE DOCTOR GETS THE MESSAGE.
--- NOTE | 2020-01-13 23:13 | NUR ---
ASSUMED CARE OF PT AT 1900. PT IS A&OX4. IS ON ROOM AIR. REPORTED SOME SOB WITH EXERTION. PT HAS PRN BREATHING TREATMENTS. SHE DENIES PAIN. IS STABLE. REMAINS ON SPECIAL CONTACT ISOLATION PRECAUTIONS FOR C-DIFF. IS UP WITH 1 ASSIST, GB, WALKER TO BATHROOM. FALL PRECAUTIONS & HOURLY ROUNDING CONTINUED THIS SHIFT. PT IS CURRENTLY IN BED ASLEEP. CALL LIGHT WITHIN REACH. WILL CONTINUE TO MONITOR.
[2020-01-14 06:49] LABS: HEMATOCRIT 39.4 % (37.0-47.0); HEMOGLOBIN 13.1 gm/dL (12.0-15.0); MCH 31.8 pg (26.0-34.0); MCHC 33.2 g/dL (28.0-37.0); MCV 95.9 fL (80.0-100.0); PLATELET COUNT 283 thou/uL (150-400); RBC 4.11 mil/uL (4.20-5.00); RDW 14.2 % (10.5-14.5); WBC 14.2 thou/uL (4.0-11.0)
[2020-01-14 07:00] LABS: CALCIUM 8.4 mg/dL (8.5-10.1); CREATININE 0.8 mg/dL (0.6-1.0); MAGNESIUM 1.6 mg/dL (1.8-2.4); POTASSIUM 3.9 mmol/L (3.5-5.1)
[2020-01-14 07:44] LABS: ABSOLUTE NEUTROPHILS 4.5 thou/uL (1.4-8.2)
[2020-01-14 07:45] LABS: ANISOCYTOSIS SLIGHT
[2020-01-14 07:46] LABS: ATYPICAL LYMPHS 6 %
[2020-01-14 08:00] VITALS: BP 129/80
--- NOTE | 2020-01-14 12:39 | NUR ---
ASSUMED CARE AT 0700. PATIENT IS ALERT AND ORIENTED X4. PATIENT MCCALLUM. PATIENT LUNGS ARE COARSE AND DEMINISHED. ABD IS SOFT WITH BSX4. PATIENT UP WITH ASSIST OF 1 STAFF AND GAIT BELT AND WALKER TO THE BATHROOM. PATIENT HAD BM AND VOIDED AMANDA COLORED URINE. UP IN CHAIR FOR MEALS. FALL AND SAFETY PROTOCOLS IN PLACE. DENIES PAIN AT THIS TIME. CONTINUES TO PROGRESS SLOWLY TOWARDS D/C GOALS. WILL CONTINUE TO [facility].
--- NOTE | 2020-01-14 13:29 | NUR ---
team meeting, recommendation: dc ( pt, ot ,st, nursing).
[2020-01-14 20:09] VITALS: BP 107/71
--- NOTE | 2020-01-15 02:25 | NUR ---
PT CARE ASSUEMD AT 1915 WITH PT IN CHAIR WATCHING TV.PT IS A/O X4.PT IS UP WITH ASSIST X1 WITH WALKER AND GAIT BELT TO THE BATHROOM.PT IS ON ROOM AIR AND ON BREATHING TREATMENT.PT IS ON ISOLATION CDIFF PRECAUTIONS.PTHAS LOOSE STOOL AND ON VANCOMYCIN .WILL CONTINUE TO MONITOR PER POC
[2020-01-15 08:30] VITALS: BP 115/73
--- NOTE | 2020-01-15 09:04 | NUR ---
ASSUMED CARE OF PT AT 0700. PT IS A&OX4. ABLE TO VOICE HER NEEDS. ASSISTED TO BATHROOM 2X. HAS 2LOOSE STOOL, BUT IT SEEMS BETTER. CONTINUE TO BE ON VANCOMYCIN PO FOR CDIFF. VSS ON ROOM AIR. REPORTED SOME SOB WITH EXERTION. PT HAS PRN BREATHING TREATMENTS. ENCOURAGED PT TO DO DEEP BREATHING. HAS DRY COUGH. CONTINUE TO BE ON TESSALONE BID. PT HAS FLONASE DENIES DRAINAGE. REFUSES NEEDS FOR FLONASE AT THIS MOMENT. PT C/O INSOMIA. PT SAID SHE USES TO TAKE ZYPREXA AT NIGHT INSTEAD OF THE AM. WILL ASK ORDER TO CHANGE TO BEDTIME. HAS ORDER FOR CHEST XRAY THIS AM. OFFERED SUPPORTIVE CARE. ENCOURAGED PT TO VOICE HER NEEDS. REASSESSMENT PER CHART. MEDS GIVEN. WILL CONTINUE TO MONITOR. DISCUSSED ABOUT GOALS TODAY. HER GOALS TO CONTINUE WITH THERAPY TO GET STRONGER. DEEP BREATHING. SHE DENIES PAIN. REMAINS ON SPECIAL CONTACT ISOLATION PRECAUTIONS FOR C-DIFF. EXTRA ATTENTION FOR PT THIS AM. PT APPRECIATE THE CARE, CALM, IN GOOD SPIRIT AT THIS MOMENT. SHE SAID "I LIKE YOU SISTER FOR YOUR CARE". PT UP WITH 1 ASSIST, GB, WALKER TO BATHROOM. FALL PRECAUTIONS & HOURLY ROUNDING CONTINUED THIS SHIFT. CALL LIGHT WITHIN REACH. PT IS UP TO RECLINER EATING BREAKFAST. WILL HAVE SHOWER WITH OT AFTER THIS.WILL CONTINUE TO MONITOR.
[2020-01-15 20:00] VITALS: BP 93/47
--- NOTE | 2020-01-16 00:37 | NUR ---
PT ALERT AND ORIENTED X 4. AMB TO BR WITH WALKER AND ASSIST X 1. NO SOB NOTED. OCCASIONAL NON-PRODUCTIVE COUGH NOTED. PT DENIES PAIN OR DISCOMFORT. BED ALARM ON FOR SAFETY. PT APPEARS TO BE SLEEPING ON HOURLY ROUNDS.
[2020-01-16 08:00] VITALS: BP 145/66
--- NOTE | 2020-01-16 09:00 | NUR ---
ASSUMED CARE AT 0700. PATIENT IS ALERT AND ORINETED X4. PATIENT MCCALLUM'S, SCHOOL COMMISSIONER ARE EQUAL. LUNGS ARE COARSE AND DEMINISHED. PATIENT CONTINUES ON RESPIRATORY TX AND I.S. CXR WAS NEG FOR PNEUMONIA, BUT STILL HAS SOME ATELECTASIS IN HER LOWER LOBES. ABD IS SOFT WITH BSX4. UP TO THE BATHROOM TO VOID AMANDA COLORED URINE AND HAVE A LOOSE BM. UP IN THE CHAIR FOR MEALS. FALL AND SAFETY PROTOCOLS IN PLACE. DENIES ANY PAIN. CONTINUES TO PROGRESS TOWARDS D/C GOALS. WILL CONTINUE TO MONITER
[2020-01-16 20:00] VITALS: BP 138/82
--- NOTE | 2020-01-17 03:04 | NUR ---
ASSUMED CARE AT APPROX 1900 EVENING 01/15. PT SITTING UP IN BED AT CHANGE OF SHIFT RESTING. PT ALERT AND ORIENTED X4, PLEASANT AND COOPERATIVE. PT UP TO BATHROOM SEVERAL TIMES IN NIGHT TO HAVE SMALL BM. LAST TIME UP PT INCONTINENT AND ASSISTED WITH BRIEF CHANGE. PT ON ROOM AIR, NO SHORTNESS OF BREATH APPEARS TO BE SLEEPING IN BETWEEN BATHROOM VISITS. BED ALARM ON AND CALL LIGHT IN REACH. WILL CONTINUE TO MONITOR.
[2020-01-17 09:18] VITALS: BP 129/69
--- NOTE | 2020-01-17 09:27 | NUR ---
ASSUMED CARE OF PT AT 0700. PT IS A&OX4. ABLE TO VOICE HER NEEDS.REPORTS SLEPT BETTER LAST NIGHT. TAKE ZYPREXA AT HS SCHEDULE SHE SAID IT HELPS HER SLEEP BETTER. ASSISTED TO BATHROOM 2X. HAS 2LOOSE STOOL, BUT IT SEEMS BETTER. CONTINUE TO BE ON VANCOMYCIN PO FOR CDIFF. VSS ON ROOM AIR. SAT 94% ON RA. PT HAS PRN BREATHING TREATMENTS. PT HAS BEEN DOING DEEP BREATHING INSTRUCTION. DENIES COUGH. OFFERED SUPPORTIVE CARE. ENCOURAGED PT TO VOICE HER NEEDS. REASSESSMENT PER CHART. MEDS GIVEN. WILL CONTINUE TO MONITOR. DISCUSSED ABOUT GOALS TODAY. HER GOALS TO CONTINUE WITH THERAPY TO GET STRONGER.REMAINS ON SPECIAL CONTACT ISOLATION PRECAUTIONS FOR C-DIFF. PT UP WITH 1 ASSIST, GB, WALKER TO BATHROOM. PT SAID SHE CAN TURN HERSELF IN BED NO NEEDS OF CORPORATE TRAVEL EXPERT. UP FOR BATHROOM FRENQUENLY. COMPLETED QTURN 2HR INTERVENTION. SKIN INTACT. HAS SOME EDEMA ON BILATER FEET. WILL PROVIDE SUJEY HOSE. OT GIVEN PT SHOWER AT THIS MOMENT. FALL PRECAUTIONS & HOURLY ROUNDING CONTINUED THIS SHIFT. CALL LIGHT WITHIN REACH WHEN RESTING.
[2020-01-17 19:48] VITALS: BP 105/66
--- NOTE | 2020-01-18 02:18 | NUR ---
Calling for stand-by assist to bathroom. Bowel movements are soft, fluffy, frequent, and urgent. She worries that staff will not get there in time to assist her to toilet
[2020-01-18 08:00] VITALS: BP 121/80
--- NOTE | 2020-01-18 09:35 | NUR ---
ASSUMED CARE OF PT AT 0700. PT IS A&OX4. ABLE TO VOICE HER NEEDS.REPORTS SLEPT BETTER LAST NIGHT. HAD 1X LOOSE STOOL AT 4AM. CONTINUE TO BE ON VANCOMYCIN PO FOR CDIFF. VSS ON ROOM AIR. SAT 94% ON RA. DENIES COUGH, PAIN, SOB. OFFERED SUPPORTIVE CARE. ENCOURAGED PT TO VOICE HER NEEDS. REASSESSMENT PER CHART. MEDS GIVEN. WILL CONTINUE TO MONITOR. DISCUSSED ABOUT GOALS TODAY. HER GOALS TO CONTINUE WITH THERAPY TO GET STRONGER.REMAINS ON SPECIAL CONTACT ISOLATION PRECAUTIONS FOR C-DIFF. PT UP WITH 1 ASSIST, GB, WALKER TO BATHROOM. SKIN INTACT. FALL PRECAUTIONS & HOURLY ROUNDING CONTINUED THIS SHIFT. CALL LIGHT WITHIN REACH. WILL CONTINUE TO MONITOR.
[2020-01-18 19:28] VITALS: BP 131/73
--- NOTE | 2020-01-19 02:32 | NUR ---
Calls for standby assist to toilet, voiding every 2 hours, usually with a small bm at the same time. Wearing brief due to fear of bm being to sudden and uncontrollable. Omid added to treat C. diff and explained to patient and added to hand-written list compiled to remind herself of pill times.
[2020-01-19 05:42] LABS: ABSOLUTE NEUTROPHILS 5.2 thou/uL (1.4-8.2); BASOPHILS 0.7 % (0.0-2.0); EOSINOPHILS 1.5 % (0.0-3.0); HEMATOCRIT 38.6 % (37.0-47.0); HEMOGLOBIN 12.8 gm/dL (12.0-15.0); LYMPHOCYTES 39.9 % (24.0-44.0); MCH 31.9 pg (26.0-34.0); MCHC 33.1 g/dL (28.0-37.0); MCV 96.4 fL (80.0-100.0); MONOCYTES 7.2 % (1.0-8.0); PLATELET COUNT 199 thou/uL (150-400); POLYS 50.7 % (36.0-66.0); RBC 4.01 mil/uL (4.20-5.00); RDW 14.3 % (10.5-14.5); WBC 10.2 thou/uL (4.0-11.0)
[2020-01-19 05:52] LABS: CREATININE 0.9 mg/dL (0.6-1.0); MAGNESIUM 1.5 mg/dL (1.8-2.4); PHOSPHORUS 4.1 mg/dL (2.5-4.9); POTASSIUM 4.2 mmol/L (3.5-5.1)
--- NOTE | 2020-01-19 07:45 | NUR ---
ASSUMED CARE AT 0700. PATIENT IS ALERT AND ORIENTED X4. PATIENT MCCALLUM'S, PODIATRIC SURGEON ARE EQUAL. LUNGS ARE COARSE AN DEMINISHED. PATIENT CONTINUES ON RESPIRATORY TX ABD IS SOFT WITH BSX4. UP TO THE BATHROOM TO VOID AMANDA COLORED URINE. UP IN BED FOR BREAKFAST. FALL AND SAFETY PROTOCOLS IN PLACE. DENIES ANY PAIN AT THIS TIME. CONTINUES TO PROGRESS SLOWLY TOWARDS D/C GOALS. WILL CONTINUE TO MONITER.
[2020-01-19 08:56] VITALS: BP 119/66
--- NOTE | 2020-01-19 16:32 | NUR ---
PATIENT HAD SMALL, BROWN SOFT STOOL. PATIENT CONTINUES ON FLAGYL PO AND VANCOMYCIN PO. WILL CONTINUE TO MONITER.
[2020-01-19 19:44] VITALS: BP 128/69
--- NOTE | 2020-01-20 00:25 | NUR ---
PT ALERT AND ORIENTED X 4. AMB TO BR WITH WALKER AND ASSIST X 1 WITHOUT DIFFICULTY. DENIES SOB, NO COUGHING NOTED. PT DENIES PAIN OR DISCOMFORT. BED ALARM ON FOR SAFETY. PT APPEARS TO BE SLEEPING ON HOURLY ROUNDS.
[2020-01-20 08:15] VITALS: BP 138/75
--- NOTE | 2020-01-20 09:32 | NUR ---
ASSUMED CARE OF PT AT 0700. REPORTS SLEPT FAIR BUT HAS RESTLESS LEG SYNDROM THAT KEPT HER AWAKE. WILL ASK GARCIA TO CHANGE PRAMIPEXOLE AT NIGHT. PT IS A&OX4. ABLE TO VOICE HER NEEDS. HAD 1X MODERATE SOFT BM THIS AM. WBC 10.2 THIS AM. CONTINUE TO BE ON VANCOMYCIN AND FLAGYL PO FOR CDIFF. FLAGYL SEEMS WORKING WELL. VSS ON ROOM AIR. SAT 95% ON RA. DENIES COUGH, PAIN, SOB. REFUSES VOLTAREN GEL SCHEDULE THIS AM. MAY ASK GARCIA TO CHANGE ORDER TO PRN. OFFERED SUPPORTIVE CARE. ENCOURAGED PT TO VOICE HER NEEDS. REASSESSMENT PER CHART. MEDS GIVEN. WILL CONTINUE TO MONITOR. DISCUSSED ABOUT GOALS TODAY. HER GOALS TO CONTINUE WITH THERAPY TO GET STRONGER.REMAINS ON SPECIAL CONTACT ISOLATION PRECAUTIONS FOR C-DIFF. PT UP WITH 1 ASSIST, GB, WALKER TO BATHROOM. SKIN INTACT. FALL PRECAUTIONS & HOURLY ROUNDING CONTINUED THIS SHIFT. CALL LIGHT WITHIN REACH WHEN IN ROOM. PT REFUSES SHOWER THIS AM. WORKING WITH OT IN OT GYM AT THIS MOMENT. WILL CONTINUE TO MONITOR.
--- NOTE | 2020-01-20 10:26 | NUR ---
Nutrition: Seen for weekly follow up. Visited in a.m. between therapies. Pt continues to report excellent taste of food; "very pleased with everything." Continues on low fiber, in isolation for c diff. Most recent BM earlier today, 01/19. Continues to eat 100% of majority of meals; no intake or appetite concerns. Pt w/ recent beneficial healthy wt loss. Weighing mid 250#'s all of mid december, now down to 240# per 01/17. Pt contributes this likely to increased work with therapies. Continues on a probiotic BID, plus receives yogurt daily w/ breakfast for a food source. Reports doing well with balanced meals and consuming at least 1 protein source/meal. No further needs. Remains low risk.
[2020-01-20 20:00] VITALS: BP 139/61
--- NOTE | 2020-01-20 23:25 | NUR ---
PT CARE ASSUMED AT 1915 WITH PT IN CHAIR WATCHING TV.PT IS A/O X4.PT IS UP WITH X1 ASSIST.PT IS ON CONTACT PRECAUTION FOR CDIFF.WILL CONTINUE TO MONITOR PER POC
--- NOTE | 2020-01-21 04:35 | NUR ---
ASSUMED PT CARE AT 0115 FROM A DIFFERENT NURSE. PT A&0X4 WAS RESTING IN BED UPON ASSESSMENT. ASSESSMENTS AND MEDS GIVEN ARE CHARTED. PT STATED HAVING A MORE FORMED BM THIS SHIFT. PT IS STABLE, NO COMPLAINTS OF PAIN OR DISCOMFORT. WILL CONTINUE TO MONITOR PER POC.
[2020-01-21 08:00] VITALS: BP 107/55
--- NOTE | 2020-01-21 12:44 | NUR ---
team meeting, recommendation: dc move till with mary painting ( pt, ot, st and nursing). son to check on meds.
--- NOTE | 2020-01-21 14:04 | NUR ---
ASSUMED CARE OF PT AT 0700. PT ALERT AND ORIENTED X4. ABLE TO VOICE HER NEEDS. HAD 2X SMALL SOFT BM TODAY. CONTINUE TO BE ON VANCOMYCIN AND FLAGYL PO FOR CDIFF. VSS ON ROOM AIR. SAT 93-95% ON RA. DENIES COUGH, PAIN, SOB. OFFERED SUPPORTIVE CARE. ENCOURAGED PT TO VOICE HER NEEDS. REASSESSMENT PER CHART. MEDS GIVEN. WILL CONTINUE TO MONITOR. DISCUSSED ABOUT GOALS TODAY. HER GOALS TO CONTINUE WITH THERAPY TO GET STRONGER.REMAINS ON SPECIAL CONTACT ISOLATION PRECAUTIONS FOR C-DIFF. PT UP WITH 1 ASSIST, GB, WALKER TO BATHROOM. SKIN INTACT. NO NEEDS OF NYSTATIN AT THIS MOMENT. TEAM CONFERENCE TODAY, PT'S SON WILL PICK PT UP EARLIER ON TUESDAY 01/23. NOTIFIED GARCIA TO WORK ON DISCHARGE MEDS AND COMMUNICATE WITH SYSTEMS ANALYST ENGINEER ON [employer] TO GET DISCHARGE PAPERS READY ON MONDAY. FALL PRECAUTIONS & HOURLY ROUNDING CONTINUED THIS SHIFT. CALL LIGHT WITHIN REACH. PT RESTING IN BED AT THIS MOMENT.
--- NOTE | 2020-01-21 15:36 | H ---
[facility] [place] [address] HISTORY AND PHYSICAL Name: JOSÉ MANUEL FLORES Room #: 516-1 ADM IN M.R.#: [id number] Admission: 01/10/20 Attend Phys: Venkat Deal MD Discharge: Date of : 49 Report #: [id number] THIS REPORT FOR: cc: Vincent Brown,Venkat Contreras MD ~ CC: Venkat Brown DATE OF SERVICE: 01/10/2020 HISTORY AND PHYSICAL/POST ADMISSION PHYSICIAN EVALUATION HISTORY OF PRESENT ILLNESS: The patient is a 74-year-old female originally admitted to [facility] on 01/07/2020 with shortness of breath and cough. She was diagnosed with acute hypoxic respiratory failure secondary to community-acquired pneumonia and acute exacerbation of asthma. She was placed on IV antibiotics. She developed diarrhea. C. diff returned positive and she was started on p.o. vancomycin. She was noted to have medical complexity with generalized debilitation with the multiple medical comorbidities as noted and has been admitted for acute in-hospital inpatient rehabilitation. PAST MEDICAL HISTORY: She has a significant past medical history including bipolar disorder, asthma and obesity. ALLERGIES: LISTED INCLUDING ABILIFY, HALDOL, AND LITHIUM. MEDICATIONS: Please see the full medication listing. SOCIAL HISTORY: Premorbidly, she had been living at home alone in an apartment with 10 steps in. She used to front-wheeled walker or at times was furniture walking. She was independent with ADLs and IADLs and her son assists some. A note of a [facility] stay. There was some concern at that time for mild neurocognitive disorder and possible dementia. Guardianship was noted to be recommended at that time and unsure if son actually pursued. HABITS: As noted, no history of tobacco or alcohol abuse. REVIEW OF SYSTEMS: No current complaints were noted of chest pain, shortness of breath, abdominal discomfort while at rest. Complains of some overall generalized weakness. PHYSICAL EXAMINATION: GENERAL: Obese white female in no obvious distress. The patient was seen later yesterday. VITAL SIGNS: Temperature 97.7, pulse 74, respirations 18, blood pressure [facility] [address] [place] [address] HISTORY AND PHYSICAL Name: JOSÉ MANUEL FLORES Room #: [facility] ADM IN ..#: [id number] Admission: 01/10/20 Attend Phys: Venkat Deal MD Discharge: Date of : 49 Report #: [id number] 157/77. She follows basic 1 step commands. Facies appeared to be symmetric. HEENT: Appeared benign. CHEST: Some decreased breath sounds. No accessory muscle use, otherwise sounded clear. CARDIOVASCULAR: Regular rate and rhythm. ABDOMEN: Bowel sounds positive, obese, and nontender. GENITOURINARY AND RECTAL: Deferred. EXTREMITIES: Functional range of motion of both upper extremities. Strength is grade 4-/5. DTRs trace to 1. Lower extremities functional range of motion with strength grade 4- to 3+/5. Tone appeared to be intact. She has been min assist with basic sit to stand transfers. She has got 1+ distal lower extremity edema. Follows basic commands without difficulty. ASSESSMENT: A 74-year-old white female with the following problem list: 1. Medical complexity with generalized debilitation. 2. Acute hypoxic respiratory failure. 3. Community-acquired pneumonia. 4. Acute exacerbation of asthma. 5. Question of possible early dementia. 6. Electrolyte abnormalities. 7. Bipolar disorder. 8. Exogenous obesity. PLAN: The patient has been admitted for acute in-hospital inpatient rehabilitation. From a postadmission physician evaluation perspective, there are no relevant changes since the preadmission screening. Please see the above review of prior and current medical and functional conditions and comorbidities. Please see the patient's previous and current functional status. As far as risk of complications, the patient has multiple medical comorbidities as noted above. Initial plan of care involves the interdisciplinary acute inpatient rehabilitation program. Measurable functional goals would be for the patient to become modified independent with transfers, mobility, ADLs to hopefully achieve her prior functional status so she can return back to the home setting. Prognosis is reasonably good with estimated length of stay probably at least 10 days to 2 weeks. Potential barriers would include her multiple medical comorbidities and decreased functional status. The patient meets diagnostic criteria for an acute in-hospital inpatient rehabilitation stay. She meets the medical necessity criteria and we will have the [place] consultant physicians continue to follow. She does have the tolerance for therapies and has appropriate discharge goals back to the home setting. <ELECTRONICALLY SIGNED> By: Venkat Deal MD 01/21/20 1536 [id number] Venkat Deal MD /nt
--- NOTE | 2020-01-21 15:38 | PLAN ---
[facility] [place] [address] REHAB UNIT PLAN OF CARE Name: JOSÉ MANUEL FLORES Room #: 516-1 ADM IN M.R.#: [id number] Admission: 01/10/20 Attend Phys: Venkat Deal MD Discharge: Date of : 49 Report #: [id number] THIS REPORT FOR: //name// CC: Venkat Brown DATE OF SERVICE: 01/13/2020 PROGRESS NOTE AND OVERALL PLAN OF CARE SUBJECTIVE: The patient is seen back today in followup. She is in no distress. Complains of a dry cough. She thinks it is worse in the last couple of days. Temperature 36.4, pulse 76, respirations 20, blood pressure 135/72. She is alert, in no distress. Transfers are contact guard, gait min assist 60 feet front-wheeled walker. Occupational therapy, lower body dressing is mod assist. She has [id number] comprehensive deficits. She is on a mechanical soft, all liquids. She has moderate cognitive deficits noted. ASSESSMENT: 1. Medical complex with generalized debilitation. 2. Acute hypoxic respiratory failure. 3. Community-acquired pneumonia. 4. Acute exacerbation of asthma. 5. Question of possible early dementia. 6. Electrolyte abnormalities were previously noted. 7. Bipolar disorder. 8. Exogenous obesity. PLAN: The overall plan of care is based on the preadmission screen, post-admission physician evaluation and information garnered from therapy assessments. 1. Estimated length of stay is probably going to be at least 10 days to 2 weeks. 2. Medical prognosis is reasonably good. 3. Anticipated interventions includes the interdisciplinary acute inpatient rehabilitation program. 4. Anticipated functional outcomes would be for the patient to become modified independent with transfers, mobility and ADLs, so that she can hopefully return back to her prior living situation. 5. Discharge destination could be back home where she lives in an apartment, 10 steps in. 6. Expected therapy by discipline includes PT, OT and speech 1 hour per day each five days a week throughout the duration of the acute inpatient rehabilitation stay. [address] [address] REHAB UNIT PLAN OF CARE Name: JOSÉ MANUEL FLORES Room #: 516-1 ADM IN M.R.#: [id number] Admission: 01/10/20 Attend Phys: Venkat Deal MD Discharge: Date of : 49 Report #: [id number] ADDENDUM: I did discuss the patient's cough complaints with the hospitalist, nurse practitioner. <ELECTRONICALLY SIGNED> By: Venkat Dela MD 01/21/20 1538 [id number] Venkat Deal MD /RADHA
[2020-01-21 19:10] VITALS: BP 119/62
--- NOTE | 2020-01-22 02:55 | NUR ---
Up with walker and minimal assist to toilet. Stools are small and softly formed. Anticipates going home Monday. States she was told that she would need a total of 14 days of Flagyl.
[2020-01-22 08:00] VITALS: BP 107/72
--- NOTE | 2020-01-22 09:02 | NUR ---
ASSUMED CARE AT 0700. PATIENT IS ALERT AND ORIENTED X4. PATIENT MCCALLUM'S, INJECTION MACHINE OPERATOR ARE EQUAL. LUNGS ARE CLEAR AND DEMINISHED. ABD IS SOFT WITH BSX4. PATIENT HAD BM THIS A.M. UP IN THE CHAIR FOR MEALS. FALL AND SAFETY PROTOCOLS IN PLACE. DENIES PAIN AT THIS TIME. CONTINUES TO PROGRESS TOWARDS D/C GOALS. WILL CONTINUE TO MONITER.
[2020-01-22 14:36] VITALS: BP 107/72
--- NOTE | 2020-01-22 16:15 | NUR ---
FAXED REFERRAL TO [facility] SPOKE WITH REGI IN INTAKE SHE RECEIVED REFERRAL AND CAN ACCEPT ANTICIPATE DC 01/23.
[2020-01-22 19:41] VITALS: BP 126/61
--- NOTE | 2020-01-23 02:17 | NUR ---
ASSUMED PT CARE AROUND 1914. AXOX4. ISO FOR ACTIVE C.DIFF TX. MARLIN APPROPIRATELY FOR HELP AND MEDICATION. REPORTS DEC DIARRHEA. NO S/S ACUTE DISTRESS NOTED OR REPORTED AT THIS TIME. WILL CONT TO MONITOR FOR ANY CHAGES IN CONDITION.
--- NOTE | 2020-01-23 07:48 | NUR ---
ASSUMED CARE AT 0700. PATIENT IS ALERT AND ORIENTED X4. PATIENT DILEEP, TOWEL ROLLING MACHINE OPERATOR ARE EQUAL. LUNGS ARE CLEAR AND DEMINISHED. PATIENT [id number] ON RESPIRATORY TX. ABD IS SOFT WITH BSX4. PATIENT HAD BM THIS AM , BROWN AND FORMED. PATIENT AMBULATED TO CHAIR WITH ASSIST OF 1 AND GAIT BELT AND WALKER. PATIENT IS VOIDING AMANDA COLORED URINE. FALL AND SAFETY PROTOCOLS IN PLACE. DENIES ANY PAIN. CONTINUES TO PROGRESS TOWARDS D/C GOALS. WILL CONTINUE TO MONITER.
--- NOTE | 2020-01-23 09:30 | NUR ---
CM NOTIFIED THAT PT SON WILL BE PICKING HER UP AROUND 1100 AM ON . PT WILL DC HOME WITH NOE MURILLO. NO DME NEEDS. FAMILY TO ASSIST WITH BILLS AND PILLS.
[2020-01-23 20:24] VITALS: BP 139/72
--- NOTE | 2020-01-24 04:43 | NUR ---
assumed care at approx 1900 evening 01/22. pt alert and oriented x4 appropriate and cooperative. pt assisted into bed at hs and pt took hs meds with water tolerating well. pt remains in isolation for cdiff. pt assisted to bathroom several times in night to void and have 2 bms. pt appears to be sleeping soundly with hourly rounding checks. bed alarm on and call light in reach. will continue to monitor.
[2020-01-24 05:28] LABS: EOSINOPHILS 2.3 % (0.0-3.0); HEMATOCRIT 34.9 % (37.0-47.0); HEMOGLOBIN 11.7 gm/dL (12.0-15.0); LYMPHOCYTES 47.2 % (24.0-44.0); MCH 32.3 pg (26.0-34.0); MCHC 33.7 g/dL (28.0-37.0); MCV 95.9 fL (80.0-100.0); MONOCYTES 9.6 % (1.0-8.0); PLATELET COUNT 226 thou/uL (150-400); POLYS 39.9 % (36.0-66.0); RBC 3.63 mil/uL (4.20-5.00); RDW 14.3 % (10.5-14.5); WBC 7.6 thou/uL (4.0-11.0)
[2020-01-24 05:47] LABS: CALCIUM 8.5 mg/dL (8.5-10.1); CREATININE 0.8 mg/dL (0.6-1.0); MAGNESIUM 1.6 mg/dL (1.8-2.4)
[2020-01-24 08:00] VITALS: BP 109/63
[2020-01-24] MEDS ORDERED: MAGOX 400400 MG PO (08:18)
[2020-01-24] MEDS ORDERED: NYAMYC15 GM TOP (08:18)
[2020-01-24] MEDS ORDERED: VOLTAREN GEL 1100 G2 TOP (08:18)
[2020-01-24] MEDS ORDERED: FIRVANQ50 MG/1 ML PO ×2 (08:18→10:56)
[2020-01-24] MEDS ORDERED: SINGULAIR 10 MG10 M1 PO (08:18)
[2020-01-24] MEDS ORDERED: ACIDOPHILUS1 EAC4 PO (08:18)
[2020-01-24] MEDS ORDERED: FLAGYL 250 MG250 MG PO (08:18)
[2020-01-24] MEDS ORDERED: TYLENOL325 MG PO (08:18)
[2020-01-24 10:41] VITALS: BP 107/72
--- NOTE | 2020-01-24 18:33 | NUR ---
ASSUMED CARE OF PT AT 0700. PT IS A&OX4 AND VITAL SIGNS ARE STABLE. PT DENIES PAIN AND PARTICIPATED IN ADL'S. ORDERS TO DISHCARGE PT HOME WITH HOME HEALTH THIS SHIFT. PT PROVIDED WITH EDUCATION ABOUT MEDICATIONS, HEALTH MANAGEMENT AND DISCHARGE INSTRUCTIONS PRIOR TO DISCHARGE. SCRIPTS SENT TO PREFERRED PHARMACY. PT DENIED ANY QUESTIONS. SON ARRIVED TO [employer]UB INFORMATION CLERK PT AT 1030, PT TRANSFERED TO MEDICAL MALL ENTRANCE BY NURSING AND ASSISTED INTO PRIVATE VEHICLE.
== END 2020-01-24 10:30 | disposition home health service (06) | DRG 947 ==
PROVIDERS: Internal Medicine; Nurse Practitioner; Nurse Practitioner Family; ADMIT Physical Medicine & Rehabilitation
DX: R53.81 Other malaise (principal); J96.01 Acute respiratory failure with hypoxia; J18.9 Pneumonia, unspecified organism; J45.901 Unspecified asthma with (acute) exacerbation; A04.72 Enterocolitis due to Clostridium difficile, not specified as recurrent; Z68.41 Body mass index [BMI] 40.0-44.9, adult; F31.9 Bipolar disorder, unspecified; E66.09 Other obesity due to excess calories; E87.8 Other disorders of electrolyte and fluid balance, not elsewhere classified; Z90.710 Acquired absence of both cervix and uterus; Z88.8 Allergy status to other drugs, medicaments and biological substances; D72.829 Elevated white blood cell count, unspecified; T38.0X5A Adverse effect of glucocorticoids and synthetic analogues, initial encounter; Y92.89 Other specified places as the place of occurrence of the external cause; F03.90 Unspecified dementia, unspecified severity, without behavioral disturbance, psychotic disturbance, mood disturbance, and anxiety
CPT/HCPCS: 10112

== ENCOUNTER 2020-02-05 15:43 | Inpatient (IN) | payer OTHER ==
[~2020-02-05] VITALS: Ht 162.6 cm; Wt 110.0 kg
--- NOTE | ~2020-02-05 | HC ---
[facility] [place] [address] CONSULTATION Name: JOSÉ MANUEL FLORES Room #: 443-P ADM IN M.R.#: [id number] Admission: 02/05/20 Attend Phys: Broderick Coulter MD Discharge: Date of : 49 Report #: [id number] THIS REPORT FOR: cc: Vincent Brown James A. DO Smithson, David G. MD ~ CC: Vincent Coulter DATE OF SERVICE: 02/12/2020 HISTORY OF PRESENT ILLNESS: The patient is a 74-year-old white female previously known to me, who was readmitted to [facility] on 02/05/2020 with increased shortness of breath, increased lower extremity edema. She was diagnosed with acute hypoxemia with respiratory failure secondary to fluid overload. COVID-19 was ruled out. She was noted to have an elevated troponin, thought secondary to fluid overload. She has been followed by Cardiology and Internal Medicine. There is a history of recent Clostridium difficile. She does have premorbid bipolar disorder. She has generalized weakness and debilitation. We are seeing her in rehabilitation medicine consultation. PAST MEDICAL HISTORY: Includes UTI, suicidal ideation in the past, bilateral knee pain, bipolar disorder with history of a recent Behavioral Health stay, asthma. MEDICATIONS: Please see the full medication listing. ALLERGIES: She does have allergies to ABILIFY, HALDOL, LITHIUM. SOCIAL HISTORY: She lives alone in an apartment. The patient's son is there, he can assist, but he is noted to work some per her history. At the time of discharge from her recent -[facility] stay on 01/24/2020, she was modified independent, ambulating 120 feet with front-wheeled walker. She is noted to have significant cognitive deficits, noted to be mild neurocognitive disorder along with her bipolar disorder and has seen Dr. Pierre Avelar in consultation on 01/17/2020. HABITS: No history of tobacco or alcohol abuse. FAMILY HISTORY: Noncontributory. REVIEW OF SYSTEMS: No current complaints of chest pain, shortness of breath or abdominal discomfort. PHYSICAL EXAMINATION: [facility] [address] [place] [address] CONSULTATION Name: JOSÉ MANUEL FLORES Room #: 443-P [facility] IN .R.#: [id number] Admission: 02/05/20 Attend Phys: Broderick Coulter MD Discharge: Date of : 47 Report #: [id number] GENERAL: A 74-year-old white female in no obvious distress. VITAL SIGNS: Last recorded temperature is 99.3, pulse 92, respirations 17, blood pressure 136/63. NEUROLOGIC: The patient is alert. Facies are symmetric. She does follow basic 1 step commands. Her history is a little inconsistent at times. EXTREMITIES: She has functional range of motion of both upper extremities. Strength is grade 4-/5 to 3+/5. Lower extremities: She had difficulty lifting both lower extremities off the bed proximally, so she would be graded at a 3- distally. She was more of 3+ to 4 minus. Tone appeared to be intact. No clonus. ASSESSMENT: A 74-year-old white female with the following problem list: 1. Medical complexity with generalized debilitation. 2. Acute hypoxemic respiratory failure secondary to fluid overload. 3. COVID-19 negative. 4. Elevated troponin. 5. Recent Clostridium difficile. 6. Asthma. 7. Bipolar disorder. PLAN: PT and OT are to work with her. Ideally, she will be able to function well enough to hopefully return back to the home setting, although she does appear quite debilitated. She unfortunately does not meet criteria for another acute 5-[facility] inpatient rehabilitation stay as she was just discharged from the rehab [facility] on 01/24/2020 and does not have a new rehab diagnosis. We will need to consider other discharge/therapy options if she is not strong enough to be able to return directly home with home health care. Therapies are to continue to work with her in the meantime. Thank you for asking us to assist in this patient's care. By: [id number] [id number] Veknat Deal MD /RADHA
[~2020-02-05 15:43] MED LIST changes: +FLAGYL 250 MG250 MG PO; +MAGOX 400400 MG PO; +SINGULAIR 10 MG10 M1 PO; +TYLENOL325 MG PO; +VOLTAREN GEL 1100 G2 TOP
[2020-02-05 15:58] VITALS: BP 120/68
[2020-02-05 16:52] LABS: HEMOGLOBIN 13.3 gm/dL (12.0-15.0); MCH 31.9 pg (26.0-34.0); MCHC 33.3 g/dL (28.0-37.0); MCV 95.9 fL (80.0-100.0); RBC 4.17 mil/uL (4.20-5.00); RDW 14.6 % (10.5-14.5); WBC 7.6 thou/uL (4.0-11.0)
[2020-02-05 16:55] LABS: CALCIUM 9.1 mg/dL (8.5-10.1); CREATININE 1.2 mg/dL (0.6-1.0); POTASSIUM 3.9 mmol/L (3.5-5.1)
[2020-02-05 17:03] LABS: TROPONIN-I 0.18 ng/mL (<0.06)
--- NOTE | 2020-02-05 17:12 | NUR ---
KAYLEE LAST, CALL WITH UPDATES: [phone]
[2020-02-05 17:23] LABS: BE(vivo) -2.1 mmol/L (-2 to +3); HCO3 21.4 mmol/L (22.0-26.0); PCO2 33.2 mmHg (35.0-45.0); PO2 65.6 mmHg (80.0-100.0); pH 7.428 (7.360-7.450); sO2 93.6 % (92.0-98.0)
[2020-02-05 18:52] VITALS: BP 114/47
[2020-02-05 20:01] VITALS: BP 108/88
[2020-02-05 20:43] VITALS: BP 137/68
[2020-02-05 23:59] VITALS: BP 104/60
[2020-02-06] VITALS: BP 104/60
[2020-02-06 04:40] VITALS: BP 110/63
--- NOTE | 2020-02-06 04:48 | NUR ---
ASSUMED CARE OF PATIENT AT 2030. PATIENT DENIED PAIN T/O NOC. BREATHING REGULAR AT REST. LABORED BREATHING AND SOA WITH ACTIVITY, INCLUDING JUST SITTING UP IN BED. PATIENT ON 4L OF OXYGEN VIA NC MAINTAINING OXYGEN SATURATION OF 97% AT REST. 4+ BILATERAL FOOT EDEMA.
[2020-02-06 07:03] LABS: ABSOLUTE NEUTROPHILS 2.9 thou/uL (1.4-8.2); HEMATOCRIT 36.7 % (37.0-47.0); HEMOGLOBIN 12.3 gm/dL (12.0-15.0); LYMPHOCYTES 46.6 % (24.0-44.0); MCH 32.1 pg (26.0-34.0); MCHC 33.5 g/dL (28.0-37.0); MCV 95.9 fL (80.0-100.0); MONOCYTES 11.8 % (1.0-8.0); PLATELET COUNT 208 thou/uL (150-400); POLYS 37.6 % (36.0-66.0); RBC 3.83 mil/uL (4.20-5.00); RDW 14.8 % (10.5-14.5); WBC 7.8 thou/uL (4.0-11.0)
[2020-02-06 07:14] LABS: CALCIUM 9.1 mg/dL (8.5-10.1); MAGNESIUM 1.5 mg/dL (1.8-2.4); POTASSIUM 3.9 mmol/L (3.5-5.1); TROPONIN-I 0.1 ng/mL (<0.06)
[2020-02-06 08:00] VITALS: BP 103/66
--- NOTE | 2020-02-06 08:10 | EKG ---
[facility] [place] [address] ELECTROCARDIOGRAM REPORT Name: JOSÉ MANUEL FLORES Room #: 360-P ADM IN M.R.#: [id number] Admission: 02/05/20 Attend Phys: Broderick Coulter MD Discharge: Date of : 47 Report #: [id number] THIS REPORT FOR: cc: Vincent Brown James A. DO Lundgren, Craig H. 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1945 Requested By: Isidro Rosenberg Order Number: [id number] MD: Kishore Can Measurements Intervals [place] Rate: 88 P: 63 TN: 159 QRS: -51 QRSD: 73 T: 34 QT: 435 QTc: 527 Interpretive Statements Sinus rhythm Inferior infarct, old Poor R wave progression Prolonged QT interval Compared to ECG 01/06/2020 23:08:30 No significant change was found Electronically Signed On 02-06-2020 8:08:49 CDT by Kishore Can [email or web address] <ELECTRONICALLY SIGNED> By: Kishore Can MD, FAC 02/06/20 0808 1735 1735 Kishore Can MD, FAC /EPI
--- NOTE | 2020-02-06 11:36 | NUR ---
assessment: CM REVIEWED CHART AND SPOKE WITH PATIENT. PT WAS ADMITTED DUE TO SOB. PT WAS RECENTLY AT [facility] AND DISCHARGED HOME WITH [facility] WHO SHE STILL CURRENTLY HAS. SUDARSHAN NOTIFIED REIG AT [facility] THAT PT IS HERE. PT ALSO HAD A [facility]ST STAY [facility] IN JUL [address] BARAHONA AT [facility] FOR OUTPATIENT PSYCH FOLLOW [employer]. PT LIVES IN A HOUSE ALONE. PT REPORTS ABOUT 10 STEPS WITH HANDRAILS TO ENTER. PT REPORTS NO STEPS ONCE SHE IS INSIDE. PT REPORTS SHE HAS A CANE AND WALKER BUT MOSTLY USES THE WALKER NOW. PT STATES SHE HAS A GRAB BAR IN THE SHOWER AND IS INDEPENDENT WITH ADLS. PT IS CURRENTLY ON 4L OXYGEN AND IN ISOLATION TO RULE OUT COVID 19. PT REPORTS SHE DOES NOT HAVE OXYGEN AT HER HOME. CM WILL CONTINUE TO FOLLOW TO ASSIST NEEDED BUT PT IS HOPEFUL SHE WILL BE ABLE TO RETURN HOME WITH HH ([facility]) AT D/C.
--- NOTE | 2020-02-06 11:40 | NUR ---
assessment: CM REVIEWED CHART AND SPOKE WITH PATIENT. PT WAS ADMITTED DUE TO SOB. PT WAS RECENTLY AT [facility] AND DISCHARGED HOME WITH [facility] AND IS STILL CURRENT WITH THEM. SUDARSHAN NOTIFIED REGI AT [facility] THAT PT IS HERE. PT ALSO HAD A [facility] STAY [facility] [address] BARAHONA AT [facility] FOR OUTPATIENT PSYCH FOLLOW [employer]. PT LIVES IN A HOUSE ALONE. PT REPORTS ABOUT 10 STEPS WITH HANDRAILS TO ENTER. PT REPORTS NO STEPS ONCE SHE IS INSIDE. PT REPORTS SHE HAS A CANE AND WALKER BUT MOSTLY USES THE WALKER NOW. PT STATES SHE HAS A GRAB BAR IN THE SHOWER AND IS INDEPENDENT WITH ADLS. PT IS CURRENTLY ON 4L OXYGEN AND IN ISOLATION TO RULE OUT COVID 19. PT REPORTS SHE DOES NOT HAVE OXYGEN AT HER HOME. CM WILL CONTINUE TO FOLLOW TO ASSIST NEEDED BUT PT IS HOPEFUL SHE WILL BE ABLE TO RETURN HOME WITH HH ([facility]) AT D/C.
[2020-02-06 12:00] VITALS: BP 118/73
--- NOTE | 2020-02-06 13:40 | NUR ---
TAKEN OVER PT CARE AT 0700, PT ALERT AND ORIENTED X4, DENIES CHEST PAIN, NAUSEA AND VOMITING. NO SIGNS OF DISTRESS NOTED. PT DYSPNEIC WITH EXERTION, PT IS ON 4L AND AND OXYGEN SATURATION WNL. PT IS EATING LUNCH AND DENIES ANY NEEDS AT THE MOMENT. CALL LIGHT AND TABLE IN REACH. WILL CONTINUE TO MONITOR.
[2020-02-06 17:19] VITALS: BP 111/62
[2020-02-06 19:22] VITALS: BP 117/70
[2020-02-07 04:34] VITALS: BP 110/74
--- NOTE | 2020-02-07 05:21 | NUR ---
ASSUMED CARE OF PATIENT AT 1900. PATIENT PROGRESSING TOWARDS GOALS. OXYGEN DECREASED TO 3L TODAY FROM 4L OVERNIGHT. OXYGEN SATURATION MAINTENED AT 96% OR ABOVE. PATIENT CONTINUES TO HAVE SOA WITH ACTIVITY. PAIN REPORTED IN BILATERAL KNEES . PATIENT STATED PAIN IS CHRONIC FROM ARTHRITIS AND REPORTED RELIEF WITH TYLENOL. DAUGHTER GUSTABOMICHAEL CALLED TO BE UPDATED ABOUT HER MOTHER'S STATUS AND ASK QUESTIONS ABOUT PLAN OF CARE. CECE REQUESTING TO HAVE PATIENT PHYSICIAN CALL AND DISCUSS PLAN OF ACTION FOR PATIENT'S CARE.
[2020-02-07 07:22] LABS: HEMATOCRIT 38.9 % (37.0-47.0); HEMOGLOBIN 12.9 gm/dL (12.0-15.0); MCHC 33.2 g/dL (28.0-37.0); MCV 96.3 fL (80.0-100.0); RBC 4.04 mil/uL (4.20-5.00); RDW 14.5 % (10.5-14.5)
[2020-02-07 07:54] LABS: CALCIUM 9.7 mg/dL (8.5-10.1); POTASSIUM 3.9 mmol/L (3.5-5.1)
[2020-02-07 11:42] VITALS: BP 110/74
--- NOTE | 2020-02-07 11:43 | NUR ---
ON-GOING ASSESSMENT: CM REVIEWED CHART AND SPOKE WITH ATTENDING. PT IS SLOWLY PROGRESSING. PTS COVID TESTING IS STILL PENDING AND THERAPIES UNABLE TO WORK WITH PATIENT UNTIL THIS IS BACK. PT IS FROM HOME WITH [facility] AND PLANS TO RESUME THAT AT DISCHARGE IF HER COVID TESTING COMES BACK NEGATIVE AND IF SHE IS STRONG ENOUGHT TO RETURN HOME. [facility] CAN ACCEPT PATIENT BACK IF COVID IS NEGATIVE AND THEY WILL NEED RESULTS OF THAT TEST FAXED TO THEM ALONG WITH DISCHARGE PAPERWORK TO FAX:[phone]. IF PATIENTS COVID TESTING IS NEGATIVE AND SHES ABLE TO RETURN HOME WITH HH OVER THE WEEKEND CALL [facility]:[phone].
[2020-02-07 18:41] VITALS: BP 119/59
--- NOTE | 2020-02-07 19:09 | NUR ---
PATIENT RESTED IN BED THROUGH THE DAY. SHE IS ALERT ORIENTED X4. RESPIRAITONS ARE EVEN NON LABORED. PLEASANT WITH CARES. WILL CONT WITH PLAN OF CARE.
[2020-02-07 19:40] VITALS: BP 102/47
[2020-02-08 00:05] VITALS: BP 110/72
--- NOTE | 2020-02-08 01:59 | NUR ---
PT CARE TRANSFERED TO [facility] GON[facility] AT APPROXIMATELY 0000HRS.
[2020-02-08 05:07] VITALS: BP 127/67
[2020-02-08 05:56] LABS: HEMATOCRIT 41.1 % (37.0-47.0); HEMOGLOBIN 13.7 gm/dL (12.0-15.0); MCH 32.2 pg (26.0-34.0); MCHC 33.4 g/dL (28.0-37.0); MCV 96.3 fL (80.0-100.0); RBC 4.26 mil/uL (4.20-5.00); RDW 14.6 % (10.5-14.5); WBC 7.7 thou/uL (4.0-11.0)
[2020-02-08 06:04] LABS: CALCIUM 9.9 mg/dL (8.5-10.1); CREATININE 1.1 mg/dL (0.6-1.0); MAGNESIUM 1.5 mg/dL (1.8-2.4); POTASSIUM 4.1 mmol/L (3.5-5.1)
--- NOTE | 2020-02-08 06:15 | NUR ---
PATIENT ALERT AND ORIENTED X4. 02NC AT 2L - NO SOA NOTED. PLEASANT AND COOPERATIVE. RECEIVED MEDICATION FOR PAIN X2 DURING THE NIGHT. BS MONITORED PER ORDER. FEMALE CATHETER IN PLACE THROUGHOUT THE NIGHT. RESTING QUIETLY. WILL MONITOR.
[2020-02-08 08:35] VITALS: BP 101/64
[2020-02-08 14:46] VITALS: BP 112/68
--- NOTE | 2020-02-08 19:13 | NUR ---
PATIENT PREFERRED TO STAY IN BED THROUGH THE DAY. ENCOURAGED TO SIT ON CHAIR FOR A MOMENT. SHE STATED SHE PREFERS TO BE WHERE SHE IS. SHE FREEMAN SNOT SEEM TO BE IN PAIN. RESPIRATOINS ARE EVEN NO N LABORED. CONT ON O2 NC. WILL CONT WITH PLAN OF CARE.
[2020-02-08 19:26] VITALS: BP 112/69
--- NOTE | 2020-02-09 03:35 | NUR ---
ASSUMED PT CARE AROUND 1914. AXOX3. CALLS APPROPRIATELY FOR HELP. NO S/S ACUTE DISTRESS NOTED OR REPORTED AT THIS TIME. WILL CONT TO MONITOR FOR ANY CHANGES IN CONDITION.
[2020-02-09 04:31] LABS: CALCIUM 9.7 mg/dL (8.5-10.1); CREATININE 1.1 mg/dL (0.6-1.0); POTASSIUM 4.2 mmol/L (3.5-5.1); TOTAL BILIRUBIN 0.4 mg/dL (<0.1-1.0); TOTAL PROTEIN 6.2 g/dL (6.4-8.2)
[2020-02-09 04:39] VITALS: BP 117/66
[2020-02-09 08:20] VITALS: BP 123/72
--- NOTE | 2020-02-09 10:53 | NUR ---
PT CARE ASSUMED AT 0700, PT ALERT AND ORIENTED X4, PT DENIES CHEST PAIN, NAUSEA AND VOMITING. PT COMPLAINS OF LOWER BACK PAIN, 3/10, PAIN MED GIVEN PER ORDER. PT OXYGEN 94% ON 2L OF NCL. PT ENCOURAGED TO SIT UP IN CHAIR, PT REUSED. ASSESSMENT AND VITALS COMPLETED. PT SON CALLED, UPDATED ON PT CARE. PT DENIES ANY NEEDS AT THE MOMENT. CALL LIGHT AND TABLE WITHIN. BED VU LOWEST LEVEL WITH ALARM ON. WILL CONTINUE TO MONITOR.
[2020-02-09 12:29] VITALS: BP 108/59
[2020-02-09 17:57] VITALS: BP 117/62
[2020-02-09 20:12] VITALS: BP 117/68
--- NOTE | 2020-02-09 22:48 | NUR ---
PT AOX4. PT REPORTS PAIN IN LEFT BUTTOCK DUE TO REPORTS OF PRESSURE, NO REDDNESS NOTED. PT REPOSITIONED TO RIGHT SIDE, REPORTS IMMEDIATE RELIEF. PT RESTING IN BED, FREQUENT REPOSITIONING ENCOURAGED. PT TOLERATING PO INTAKE WITHOUT ISSUE. ENCOURAGED PT TO NOTIFY STAFF FOR ALL NEEDS. CALL LIGHT WITHIN REACH, BED ALARM ON, BED IN LOWEST POSITION. WILL CONTINUE TO MONITOR.
[2020-02-10 00:36] VITALS: BP 125/71
[2020-02-10 04:45] VITALS: BP 123/76
--- NOTE | 2020-02-10 05:17 | NUR ---
Patient making slow progress towards outcome goals. Oxygenation optimal with 2L/NC. High fall risks, fall precautions in place. Vital signs and rhtym stable. Awaiting COVID results.
[2020-02-10 05:57] LABS: HEMATOCRIT 40.9 % (37.0-47.0); HEMOGLOBIN 13.8 gm/dL (12.0-15.0); MCH 32.1 pg (26.0-34.0); MCHC 33.7 g/dL (28.0-37.0); MCV 95.1 fL (80.0-100.0); RBC 4.31 mil/uL (4.20-5.00); RDW 14.5 % (10.5-14.5); WBC 9.3 thou/uL (4.0-11.0)
[2020-02-10 06:09] LABS: CALCIUM 9.8 mg/dL (8.5-10.1); CREATININE 1.1 mg/dL (0.6-1.0); POTASSIUM 3.8 mmol/L (3.5-5.1)
[2020-02-10 08:10] VITALS: BP 123/73
--- NOTE | 2020-02-10 12:10 | NUR ---
RIOS reviewed chart and spoke with nursing and attending physician. Pt remains in Enhanced Isolation to r/o COVID-19. Test completed on 02/04. RIOS spoke with pt via phone to discuss discharge plan. Pt states that her plan is to return home and resume services. Pt does not want to consider post-acute placement. Pt may benefit from therapy evals once COVID-19 are available. RIOS spoke with Chuy in intake at [facility] to provide update. RIOS is following to assist as needed with discharge planning.
[2020-02-10 12:24] VITALS: BP 134/74
--- NOTE | 2020-02-10 12:40 | 2DMMODE ---
[facility] [place] [address] 2 D/M-MODE ECHOCARDIOGRAM Name: JOSÉ MANUEL FLORES Room #: 360-P ADM IN M.R.#: [id number] Admission: 02/05/20 Attend Phys: Broderick Coulter MD Discharge: Date of : 47 Report #: [id number] THIS REPORT FOR: cc: Vincent Brown James A. DO Park, Jin S. MD ~ APPROVED REPORT Study performed: 02/10/2020 11:57:56 EXAM: Comprehensive 2D, Doppler, and color-flow Echocardiogram Patient Location: Bedside Room #: 360 Status: routine BSA: 2.12 HR: 86 bpm BP: 123/73 mmHg Rhythm: NSR Other Information Study Quality: Adequate Indications Elevated BNP, Covid 19 results pending 2D Dimensions RVDd: 31.69 mm IVSd: 9.59 (7-11mm) LVOT Diam: 18.38 (18-24mm) LVDd: 40.94 mm PWd: 10.48 (7-11mm) Ascending Ao: 29.59 (22-36mm) LVDs: 26.08 (25-40mm) Aortic Root: 30.02 mm IVC: 13.00 mm Volumes Left Atrial Volume (Systole) Single Plane 4CH: 26.90 mL Single Plane 2CH: 30.03 mL LA ESV Index: 14.00 mL/m2 Aortic Valve AoV Peak Juan.: 1.59 m/s AO Peak Gr.: 10.10 mmHg LVOT Max P.60 mmHg LVOT Max V: 1.07 m/s ANTONIETTA Vmax: 1.79 cm2 [facility] [address] [address] 2 D/M-MODE ECHOCARDIOGRAM Name: JOSÉ MANUEL FLORES Room #: 360-P [facility] IN [facility]#: [id number] Admission: 02/05/20 Attend Phys: Broderick Coulter MD Discharge: Date of : 47 Report #: [id number] Mitral Valve E/A Ratio: 0.8 MV Decel. Time: 277.19 ms MV E Max Juan.: 0.52 m/s MV A Juan.: 0.67 m/s MV PHT: 80.39 ms IVRT: 131.49 ms Pulmonary Vein P Vein S: 0.60 m/s P Vein A: 0.30 m/s P Vein D: 0.32 m/s P Vein A Dur.: 134.9 msec P Vein S/D Ratio: 1.88 Tricuspid Valve RAP Estimate: 5.00 mmHg Left Ventricle The left ventricle is normal size. There is normal left ventricular wall thickness. The left ventricular systolic function is normal. The left ventricular ejection fraction is within the normal range. LVEF is 60%. Mild diastolic dysfunction is present (impaired relaxation pattern). Right Ventricle The right ventricle is normal size. The right ventricular systolic function is normal. Atria The left atrium size is normal. The right atrium size is normal. Aortic Valve The aortic valve is normal in structure. No aortic regurgitation is present. There is no aortic valvular stenosis. Mitral Valve The mitral valve is normal in structure. There is no mitral valve regurgitation noted. No evidence of mitral valve stenosis. Tricuspid Valve The tricuspid valve is normal in structure. There is no tricuspid valve regurgitation noted. Unable to assess PA pressure. Pulmonic Valve Pulmonic valve is not well visualized. [facility] [address] [place] [address] 2 D/M-MODE ECHOCARDIOGRAM Name: JOSÉ MANUEL FLORES Room #: 360-P ADM IN M.R.#: [id number] Admission: 02/05/20 Attend Phys: Broderick Coulter MD Discharge: Date of : 47 Report #: [id number] Great Vessels The aortic root is normal in size. IVC is normal in size and collapses >50% with inspiration. Pericardium There is no pericardial effusion. <Conclusion> The left ventricle is normal size. There is normal left ventricular wall thickness. The left ventricular systolic function is normal. Mild diastolic dysfunction is present (impaired relaxation pattern). The right ventricle is normal size. The left atrium size is normal. The aortic valve is normal in structure. There is no mitral valve regurgitation noted. There is no tricuspid valve regurgitation noted. <ELECTRONICALLY SIGNED> By: Matthew Boogie MD 02/10/20 1239 [id number] 1239 Matthew Boogie MD /INF
--- NOTE | 2020-02-10 13:15 | NUR ---
Assess due to class III extreme obesity, BMI 41.6. Pt admitted with elevated BNP, troponin levels, acute respiratory failure. Hx recent pneumonia and asthma exacerbation, pending COVID 19 results. Requires diuretic, wts are favorably decreased about 9 lb from couple months ago. On heart healthy diet which includes Na restriction. Note elevated BG 195-202, no hx diabetes noted however does have ss insulin orders. Recommend check A1C, may benefit from carb control diet. Otherwise low nutrition risk
--- NOTE | 2020-02-10 13:21 | NUR ---
Note pts BG levels up to 202. Did not note hx of diabetes. Recommend check HgbA1C level and may need carb control diet added to diet order.
[2020-02-10 17:00] VITALS: BP 127/63
[2020-02-10 19:34] VITALS: BP 124/64
--- NOTE | 2020-02-10 19:39 | NUR ---
PT IS A&OX3, PT IS CONTINUING O2 2L/MIN/NC, PT'S VS ARE STABLE, PT DENIES PAIN AND SOB, PT NEEDS HELP CHANGING POSITION.PT IS CONTINUING ISOLATION TO R/O COVID.
[2020-02-11 00:31] VITALS: BP 131/65
[2020-02-11 04:34] VITALS: BP 125/70
--- NOTE | 2020-02-11 05:08 | NUR ---
RECIEVED CARE OF THIS PATIENT AT 1900. PATIENT ALERT AND ORIENTED X4 BUT FORGETFUL. DENIES PAIN. SLEPT OFF AND ON DURING NIGHT. ACCUCHECK WAS 193. 3 UNIT LISPRO UNSILIN GIVEN. ON BEDREST TONIGHT. PLACED IN A POSITION AT BEGINNING OF SHIFT AND REFUSED TO BE TURNED. REMAINS IN ISO FOR R/O COVID-19. HAS EXTERNAL FEMALE CATH BUT HAS LITTLE URINE OUT. BLADDER SCAN DONE AND SHOWED ONLY 153ML OF URINE.
[2020-02-11 08:20] VITALS: BP 1321/55
[2020-02-11 10:55] LABS: CALCIUM 9.1 mg/dL (8.5-10.1); CREATININE 1.2 mg/dL (0.6-1.0); MAGNESIUM 1.8 mg/dL (1.8-2.4); POTASSIUM 4.4 mmol/L (3.5-5.1)
[2020-02-11 12:10] VITALS: BP 113/62
--- NOTE | 2020-02-11 14:34 | NUR ---
PT CARE ASSUMED AT 0700, PT ALERT AND ORIENTED X4, FORGETFUL AT TIMES. PT DENIES CHEST PAIN, NAUSEA AND VOMITING. NO SIGNS OF DISTRESS NOTED. PT IS ON 2L OF OXYGEN VIA NC, OXYGEN SATURATION WNL. CALL LIGHT AND TABLE WITHIN REACH. BED AT LOWEST LEVEL WITH ALARM ON. WILL CONTINUE TO MONITOR.
--- NOTE | 2020-02-11 14:42 | NUR ---
SW reviewed chart and spoke with nursing and attending physician. Pt's COVID-19 test came back negative. Pt currently off the unit having ultrasound of BLE. PT/OT orders entered to evaluate pt for discharge needs. Pt's goal is to return home and resume services with [facility] . SW faxed info and updates to for review. Pt will transfer from when a bed becomes available. RIOS is following to assist as needed with discharge planning.
[2020-02-11 15:30] VITALS: BP 133/68
--- NOTE | 2020-02-11 15:46 | NUR ---
PT TRANSFERED TO 443, PT BELONGINGS PACKED AND SENT WITH PT. PT DAUGHTER CALLED AND UPDATED.
--- NOTE | 2020-02-11 17:38 | NUR ---
PT TRANSFERED FROM 3W TO 443. A&OX4. IV INTACT IN R ARM. 02@1 LITER PER NC. ORIENTED PT TO ROOM/CALL LIGHT. BED ALARM IS ON.
[2020-02-11 19:17] VITALS: BP 131/64
[2020-02-12 04:16] VITALS: BP 124/67
[2020-02-12 04:42] LABS: CALCIUM 9.2 mg/dL (8.5-10.1)
--- NOTE | 2020-02-12 05:44 | NUR ---
RECIEVED CARE OF THIS PATIENT AT 1900. PATIENT ALERT AND ORIENTED X4 WITH PERIODS OF CONFUSION AND FORGETFULLNESS. PATIENT IS INC OF URINE. ACCUCHECK WAS 273, 6 UNITS OF LISPRO GIVEN. O2 AT 2L/NC. C/O HEADACHE, MED GIVEN. SLEPT MOST OF NIGHT.
[2020-02-12 07:45] VITALS: BP 136/63
--- NOTE | 2020-02-12 10:22 | NUR ---
PT CARE ASSUMED AT 0700. A&Ox4 WITH FORGETFULNESS. HEART HEALTHY DIET. PT IS REFUSING A BATH AND HAVING HER HAIR WASHED. EXTERNAL CATHETER IN PLACE. ACHS WITH COVERAGE NEEDED. SCD'S IN PLACE. WHEN LISTENING TO LUNGS PT COUGHS WHEN EXHALING. IV PATENT WITH NO REDNESS OR EDEMA, SALINE LOCKED. UP WITH 2 ASSIST. NOT SURE IF THIS IS BECAUSE OF A TRUE NEED OR HER JUST NOT WANTING TO GET UP. INCONTINT TO BOWEL. STRICT I&O. FALL PROTOCOL IN PLACE. CALL LIGHT IN REACH. 2 LITERS OF 02
--- NOTE | 2020-02-12 15:19 | NUR ---
CM SPOKE WITH [facility] THIS AM AND THEY INDICATED THAT THEY CAN'T ACCEPT PT SHE DOESN'T HAVE A NEW DIAGNOSIS. CM CALLED AND NOTIFIED PT. CM ASKED IF REFERRALS COULD BE SENT TO ANOTHER ACUTE REHAB. PT CONSENTED. CM CALLED AND SPOKE WITH PT'S SON HE IS ALSO AGREEABLE. REFERRAL SENT TO [facility]. CM TO FOLLOW INDICATED WITH DC PLANNING.
[2020-02-12 16:42] VITALS: BP 126/63
[2020-02-12 19:36] VITALS: BP 145/64
[2020-02-13 03:40] VITALS: BP 123/64
--- NOTE | 2020-02-13 04:09 | NUR ---
ASSUMED PT CARE AT APPROX 1900.PT DENIED PAIN/N/V SO FAR.PT HAS NON PRODUCTIVE COUGH.PT ON 3L/NC.HOB ELEVATED PER PT'S REQUEST.FEMALE EXT CATH IN PLACE,ADEQUATE URINE OUTPUT NOTED.PT RESTING ON HER BED T THIS TIME.FALL PRECAUTIONS IN PLACE,CALL LIGHT WITHIN REACH.
[2020-02-13 05:35] LABS: HEMATOCRIT 39.8 % (37.0-47.0); HEMOGLOBIN 13.2 gm/dL (12.0-15.0); MCH 31.5 pg (26.0-34.0); MCHC 33.2 g/dL (28.0-37.0); MCV 94.8 fL (80.0-100.0); RBC 4.2 mil/uL (4.20-5.00); RDW 14.3 % (10.5-14.5); WBC 11.7 thou/uL (4.0-11.0)
[2020-02-13 06:06] LABS: CALCIUM 9.5 mg/dL (8.5-10.1); CREATININE 1.1 mg/dL (0.6-1.0)
[2020-02-13 08:09] VITALS: BP 137/68
[2020-02-13 10:28] LABS: URINE BILIRUBIN NEGATIVE (Negative); URINE BLOOD 1+ (Negative); URINE CLARITY CLEAR; URINE COLOR YELLOW; URINE GLUCOSE-RANDOM* NEGATIVE (Negative); URINE KETONES NEGATIVE (Negative); URINE LEUKOCYTES-REFLEX NEGATIVE (Negative); URINE NITRITE-REFLEX NEGATIVE (Negative); URINE PROTEIN (DIPSTICK) TRACE (Negative); URINE SPECIFIC GRAVITY 1.025 (1.005-1.035); URINE UROBILINOGEN 0.2 E.U./dl (0.2-1.0)
[2020-02-13 10:45] LABS: CASTS None Seen /LPF (None Seen); CRYSTALS None Seen /LPF (None Seen); SQUAMOUS 4-10 Moderate /LPF (0-3)
[2020-02-13 10:46] LABS: URINE WBC-REFLEX 0-5 Rare /HPF (0-5)
[2020-02-13 10:47] LABS: BACTERIA-REFLEX 1-9 Few /HPF (None Seen); URINE RBC 0-2 Rare /HPF (0-2)
[2020-02-13] MEDS ORDERED: DEMADEX20 MG PO (12:16)
[2020-02-13] MEDS ORDERED: ASPIR 8181 MG PO (12:16)
[2020-02-13] MEDS ORDERED: GLUMETZA500 PO (12:17)
[2020-02-13] MEDS ORDERED: TRADJENTA5 MG PO (12:18)
--- NOTE | 2020-02-13 14:51 | NUR ---
SUDARSHAN SPOKE WITH LISET AT [facility] THIS AM AND INDICATED THAT IT WAS ANTICIPATED THAT PT WOULD BE MEDICALLY STABLE TO DC TO THEM TODAY BUT NO ORDERS ENTERED YET. SUDARSHAN CALLED [facility] ONCE ORDERS WERE ENTERED AND FAXED THEM. SUDARSHAN FOLLOWED UP WITH YADIRA IN ADMISSIONS AND SHE INDICATED THAT THEY HAD FILLED ALL OF THEIR BEDS BUT THAT THEY COULD ARRANGE ELECTRICAL ENGINEERING TECHNICIAN TOMORROW AT 1300. SUDARSHAN NOTIFIED PHYSICAIN. SUDARSHAN TO COMPLETE AVOIDABLE DAY FORM. CM NOTIFIED UNIT, PT, AND SON. SON HAD QUESTIONS ABOUT COVID ISSUES AT ACUTE REHAB CM TO ASK LISET TO CALL SON. SUDARSHAN TO FACILITATED DC TOMORROW TO [facility] VAN ELECTRICAL ENGINEERING TECHNICIAN 1300.
[2020-02-13 15:57] VITALS: BP 105/64
--- NOTE | 2020-02-13 18:22 | NUR ---
SPOKE WITH NICK POWER INFECTIOUS NURSE SHE STATED THAT PATIENT NEEDED TO BE TAKEN OUT OF ISOLATION. SHE HAD SPOKEN WITH DR SHAH AND HE WAS AWARE. PT HAS HAD NO LOOSE STOOLS.
--- NOTE | 2020-02-13 18:24 | NUR ---
PATIENT TO DISCHARGE TO [facility] AT 13:00 DAUGHTER AWARE AND SO IS PATIENT. PT UP IN BEDSIDE CHAIR. [facility]A SENT EALIER RESULTS IN COMPUTER.
[2020-02-13 19:14] VITALS: BP 122/60
--- NOTE | 2020-02-13 19:36 | NUR ---
PT'S WEIGHT THIS MORNING WAS 231.1
--- NOTE | 2020-02-14 03:22 | NUR ---
PT CARE ASSUMED AT 1915 WITH PT IN [facility] WATCHING TV.PT IS A/O X4.PT IS UP WITH MAX ASSIST X2 WITH WALKER AND GAIT BELT.PT C/O PAIN AND REQUSTED FOR TYLENOL.PT USED AN EXTERNAL FEMALE CATHETER AT NIGHT.PT IS ON 2L OF O2.PT IS TO GO TO [facility] TODAY.WILL MONITOR PER POC
[2020-02-14 03:24] VITALS: BP 141/69
[2020-02-14 04:59] LABS: CALCIUM 9.4 mg/dL (8.5-10.1); CREATININE 1.1 mg/dL (0.6-1.0)
[2020-02-14 08:30] VITALS: BP 137/42
--- NOTE | 2020-02-14 13:51 | NUR ---
Received awake on bed. Due medications given as prescribed, able to swallow meds w/o difficulty. On O2 at 2lpm via nasal cannula. On heart healthy diet- tolerating well; no nausea, no vomiting and no abdominal pain noted. On blood sugar monitoring; taken and recorded accordingly, with sliding scale insulin- given as prescribed. With SL at L Upper arm- intact. Assisted in ADLs. Pt turned on her sides. With external kaminski in place- output measured and recorded accordingly. Falls bundle in place. Pt's daughter Cassie called; update given; Cassie asked if pt could be tested for Covid antibody and if she can have Neuro consult and work up- Dr Coulter informed- Called back Cassie and said that we don't have Covid antibody test in the hospital, neuro work up could be done at [facility], also informed her that transport has been set up between [id number] today. Pt seen by Dr Coulter today, discharge orders placed. Discharge instructions and follow up schedule given and instructed. Pt fetched by transport staff at 1300, IV discontinued; pt brought down via wheelchair with her personal belongings; discharge forms signed.
== END 2020-02-14 13:20 | DRG 291 ==
LOC: ER 15:43 → EROBS 17:49 → 3W 17:49 → 4S 02-11 15:28
PROVIDERS: Emergency Medicine; Internal Medicine Cardiovascular Disease; Nurse Practitioner; ADMIT Hospitalist
DX: I50.31 Acute diastolic (congestive) heart failure (principal); J96.01 Acute respiratory failure with hypoxia; A04.72 Enterocolitis due to Clostridium difficile, not specified as recurrent; Z68.41 Body mass index [BMI] 40.0-44.9, adult; J45.901 Unspecified asthma with (acute) exacerbation; R53.81 Other malaise; F31.9 Bipolar disorder, unspecified; R79.89 Other specified abnormal findings of blood chemistry; E11.9 Type 2 diabetes mellitus without complications; Z20.828 Contact with and (suspected) exposure to other viral communicable diseases; E66.9 Obesity, unspecified; E83.42 Hypomagnesemia; Z88.8 Allergy status to other drugs, medicaments and biological substances; Z79.82 Long term (current) use of aspirin; Z90.710 Acquired absence of both cervix and uterus; Z79.84 Long term (current) use of oral hypoglycemic drugs; Z87.440 Personal history of urinary (tract) infections; Z87.01 Personal history of pneumonia (recurrent); Z23 Encounter for immunization; Z79.899 Other long term (current) drug therapy
CPT/HCPCS: 10100; 10195; 10879

== ENCOUNTER 2020-03-21 18:24 | Inpatient (IN) | payer OTHER, MEDICARE ==
[~2020-03-21] VITALS: Ht 162.6 cm; Wt 109.1 kg
[2020-03-21 18:24] VITALS: BP 98/49
[~2020-03-21 18:24] MED LIST changes: +ASPIR 8181 MG PO; +DEMADEX20 MG PO; +GLUMETZA500 PO; +TRADJENTA5 MG PO
[2020-03-21 18:53] LABS: ABSOLUTE NEUTROPHILS 7.8 thou/uL (1.4-8.2); BASOPHILS 0.9 % (0.0-2.0); HEMATOCRIT 38.4 % (37.0-47.0); HEMOGLOBIN 12.9 gm/dL (12.0-15.0); LYMPHOCYTES 19.3 % (24.0-44.0); MCH 31.6 pg (26.0-34.0); MCHC 33.7 g/dL (28.0-37.0); MCV 93.7 fL (80.0-100.0); MONOCYTES 6.6 % (1.0-8.0); PLATELET COUNT 392 thou/uL (150-400); POLYS 73.2 % (36.0-66.0); RDW 14.8 % (10.5-14.5); WBC 10.6 thou/uL (4.0-11.0)
[2020-03-21 19:03] LABS: CALCIUM 9.2 mg/dL (8.5-10.1); CREATININE 1.3 mg/dL (0.6-1.0); POTASSIUM 3.2 mmol/L (3.5-5.1)
[2020-03-21 19:07] LABS: TROPONIN-I 0.09 ng/mL (<0.06)
[2020-03-21 19:34] LABS: URINE BILIRUBIN 2+ (Negative); URINE BLOOD 2+ (Negative); URINE CLARITY CLEAR; URINE COLOR YELLOW; URINE GLUCOSE-RANDOM* NEGATIVE (Negative); URINE KETONES TRACE (Negative); URINE LEUKOCYTES-REFLEX NEGATIVE (Negative); URINE NITRITE-REFLEX NEGATIVE (Negative); URINE PROTEIN (DIPSTICK) 1+ (Negative); URINE SPECIFIC GRAVITY >= 1.030 (1.005-1.035)
[2020-03-21 19:36] LABS: ICTOTEST (BILI CONFIRMATORY) Negative (Negative)
[2020-03-21 19:47] LABS: BACTERIA-REFLEX 1-9 Few /HPF (None Seen); CRYSTALS None Seen /LPF (None Seen); HYALINE CASTS 0-3 Few /LPF (None Seen); SQUAMOUS 4-10 Moderate /LPF (0-3); URINE RBC 3-10 Few /HPF (0-2); URINE WBC-REFLEX 0-5 Rare /HPF (0-5)
[2020-03-21 20:45] VITALS: BP 100/61
[2020-03-21 21:41] VITALS: BP 106/64
[2020-03-21] MEDS ORDERED: DICLOFENAC SOD100 G1 TOP (22:32)
[2020-03-21 22:35] VITALS: BP 139/58
[2020-03-21] MEDS ORDERED: ALLOPURINOL 10100 M3 PO (22:35)
[2020-03-21] MEDS ORDERED: PRAVASTATIN SOD20 MG PO (22:36)
[2020-03-21] MEDS ORDERED: TRADJENTA5 MG (22:38)
[2020-03-21] MEDS ORDERED: TYLENOL325 M1 PO (23:13)
--- NOTE | 2020-03-22 01:00 | NUR ---
REPORT CALLED BY ANNI RN, PT ARRIVED AT THE FLOOR AT 2144, PT IS AWAKE, ALERT AND ORIENTEDX4, PLEASANT, MAKES NEEDS KNOWN, ADMISSION ASSESSMENT CHARTED, COMPLAINED OF BILATERAL GROIN PAIN, MEDICATED PRN WITH TRAMADOL, NO FUTHER COMPLAINS, SA/SR ON THE MONITOR, MEDICATIONS ADMINISTERED ORDERED, DENIES CHEST PAIN OR SOB, B/S STABLE, VSS ON ROOM AIR, SLEEPING WITH NO DISTRESS NOTED AT THIS TIME
[2020-03-22 04:11] LABS: HEMATOCRIT 31.9 % (37.0-47.0); MCH 31.3 pg (26.0-34.0); MCHC 33.1 g/dL (28.0-37.0); MCV 94.4 fL (80.0-100.0); RBC 3.38 mil/uL (4.20-5.00); RDW 14.7 % (10.5-14.5); WBC 7.6 thou/uL (4.0-11.0)
[2020-03-22 04:12] LABS: HEMOGLOBIN 10.6 gm/dL (12.0-15.0)
[2020-03-22 04:27] LABS: CALCIUM 7.3 mg/dL (8.5-10.1); CREATININE 1.1 mg/dL (0.6-1.0); TROPONIN-I 0.08 ng/mL (<0.06)
[2020-03-22 04:42] LABS: POTASSIUM 2.9 mmol/L (3.5-5.1)
[2020-03-22 05:15] VITALS: BP 91/49
--- NOTE | 2020-03-22 07:12 | NUR ---
[facility] CALLED TO CUSTOMER SERVICE ADVISOR, ORDERES RECEIVED, BLADDER SCANNED WITH 554ML, STRAIGHT CATH PROVIDED, 575 OUT, STABLE NO DISTRESS NOTED
[2020-03-22 07:15] VITALS: BP 101/61
[2020-03-22 10:30] VITALS: BP 81/48
--- NOTE | 2020-03-22 12:06 | EKG ---
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1945 Requested By: Isidro Rosenberg Order Number: [id number] MD: Matthew Boogie Measurements Intervals [place] Rate: 88 P: NC: QRS: -28 QRSD: 91 T: 29 QT: 444 QTc: 538 Interpretive Statements Sinus rhythm Borderline left axis deviation Abnormal R-wave progression, late transition Prolonged QT interval Compared to ECG 02/05/2020 17:35:13 AV block, advanced (high-grade) now present Myocardial infarct finding no longer present Electronically Signed On 03-22-2020 12:04:48 CDT by Matthew Boogie [email or web address] <ELECTRONICALLY SIGNED> By: Matthew Boogie MD 03/22/20 1204 182 182 Matthew Boogie MD /EPI
[2020-03-22 16:50] VITALS: BP 104/57; BP 109/57
--- NOTE | 2020-03-22 18:06 | NUR ---
PT CARE ASSUMED AT 1100. ASSESSMENT CHARTED. MEDICATIONS CHARTED. PT WAS EXTREMELY AGITATED EARLIER, WANTED A NICOTINE PATCH GREATLY. ALMOST LEFT AMA, PT'S MOTHER CONVINCED HER TO CALM DOWN AND REMAIN. TROPONIN 1.16 AT 1343 CV, DR. ZELAYA INFORMED. HEPARIN PROTOCOL-CARDIAC ORDERED.
--- NOTE | 2020-03-22 18:21 | NUR ---
PT CARE ASSUMED AT 0700. ASSESSMENTS CHARTED. MEDICATIONS CHARTED. PT UP TO BSC X [address] PT [address] FOR PELVIC SCAN VIA BED. PT RESPONDS WELL TO TRAMADOL FOR PAIN.
[2020-03-22 20:30] VITALS: BP 98/57
[2020-03-23 04:45] VITALS: BP 112/58
[2020-03-23 05:59] LABS: HEMATOCRIT 35.9 % (37.0-47.0); HEMOGLOBIN 11.8 gm/dL (12.0-15.0); MCH 31.5 pg (26.0-34.0); MCHC 32.8 g/dL (28.0-37.0); RBC 3.74 mil/uL (4.20-5.00); RDW 15.2 % (10.5-14.5)
[2020-03-23 06:20] LABS: CALCIUM 8.2 mg/dL (8.5-10.1); CREATININE 1.1 mg/dL (0.6-1.0); POTASSIUM 3.9 mmol/L (3.5-5.1)
[2020-03-23 08:00] VITALS: BP 113/56
--- NOTE | 2020-03-23 08:28 | NUR ---
pt resting quietly most of the evening in beed repositioned as tolerated, groin pain controlled with tramadol prn, vss, iv fluids infusing r wrist, report given to next shift to con't with ppoc,
[2020-03-23 12:00] VITALS: BP 111/49
--- NOTE | 2020-03-23 17:20 | NUR ---
ASSUMED CARE 0700. ALERT X3, DENIES CHEST PAIN, DENIES SOB, VOICES "PAIN IS NOT THAT BAD" THEN SCORES HER PAIN 8/10. PT HAS NOT REQUESTED PAIN MEDICATION. PATIENT MOVES SLOWLY FOR TURNS AND TRANSFERS.PT REQUEST HELP MOVING LEGS AND WILL KEEP LEGS RIGID/FLEXED. ENCOURAGED PATIENT TO RELAX WITH THE MOVEMENT. PT UP TO CHAIR AFTER BREAKFAST. CONTINENT TO BEDPAN/COMMODE TO INCONTIENT. MAX ASSIST WALKER/GATE BELT. [facility]THO CONSULT CALLED. PT VOICED SHE LIVES AT HOME ALONE. CONSULT CM. FALL PRECATIONS IN PLACE. CALL LIGHT AND PERSONAL ITEMS IN REACH.
[2020-03-23 20:15] VITALS: BP 117/54
--- NOTE | 2020-03-24 04:10 | NUR ---
SLEPT MOST OF SHIFT. RESTED QUIETLY PAST ULTRAM LAST NOC. ASSIST TO REPOSTION HIPS IN BED NEEDED FOR COMFORT. REFUSES TO TURN ON SIDE. WORKING ON GOALS AND PLAN OF CARE FOR NOC. PROGRESSING SLOWLY TOWARDS DISCHARGE GAOLS. CONTINUE TO ASSES CLOSELY.
[2020-03-24 04:15] VITALS: BP 95/50
[2020-03-24 06:15] VITALS: BP 112/57
[2020-03-24 07:30] VITALS: BP 96/52
--- NOTE | 2020-03-24 14:07 | NUR ---
Assess due to 2 point nutrition screen risk. Admit with weakness, fall and bilateral groin pain. Pt with extreme class III obesity, BMI 41.3. Wt stable several months, fluctuates between 240-352 lb past on past admissions. Eating 50-100% of meals. Reduced broiler chef or cook strength of 30.5, encouraged high protein food sources and will add Ensure Max 1x day. Otherwise low nutrition risk.
[2020-03-24 16:00] VITALS: BP 115/60
--- NOTE | 2020-03-24 16:18 | NUR ---
Sp with patient via phone. Patient resides in independent apt at home. She reports she uses a walker for ambulation. She recently at [facility] and dc to [facility] 02/13/20. She dc home with HH care from [facility]. Patient could not say who her PCP is currently. She sp of HH as though that was her PCP. Discussed post acute care recommeded again for her and she wants to try to return home. Requested casemgr from [facility] HH call to determine home setting of patient. Faxed skilled referral list.
--- NOTE | 2020-03-24 18:53 | NUR ---
ASSUMED CARE 0700. ALERT X3 REQUIRES RE-ORRIENTING TO CARES. PATIENT HAS FEAR OF FALLING WHEN ASSIST X2 WHEN PT IS BEING CLEANED FROM INCONTINENT AND WITH TRANS FOR CART FOR MRI TODAY. PT UP TO BEDSIDE COMMODE WITH AX1 TAKING A LONG TIME TO GET TO SITTING POSTION AND FEET TO FLOOR. PT'S DAUGHTER UPDATED ON STATUS AND VOICED CONCERN PT MAY HAVE UNDIAGNOSED DEMENTIA. PT IS NOT AWARE THAT SHE CAN NOT CARE FOR HERSELF. SPOKE TO CM REGARDING HER CARE NEEDS. PT GIVEN REHAB LIST TO CHOOSE FOR DC. SLOWLY PROGRESSING. FALL PRECAUTIONS WITH CALL LIGHT IN REACH.
[2020-03-24 20:15] VITALS: BP 118/60
[2020-03-24 22:10] VITALS: BP 110/57
--- NOTE | 2020-03-25 02:02 | NUR ---
ASSUMED PT CARE AT 1900. PT IS AWAKE, ALERT AND ORIENTED, MAKES NEEDS KNOWN, ASSESSMENTS CHARTED, MEDICATION GIVEN ORDERED, REFUSED INSULIN, PT TRANSFERRED TO ROOM 438, NO DISTRESS NOTED
[2020-03-25 04:18] VITALS: BP 116/65
--- NOTE | 2020-03-25 06:13 | NUR ---
PT ARRIVED ON THE UNIT FROM 2NORTH @2200. RESTING WELL IN BED. DENIES PAIN ON ASSESSMENT. CLEAR LUNGS. 2+ EDEMA ON BLE ELEVATED ON PILLOWS. FALL PREC IN PLACE AND CALL LIGHT IN REACH WILL CONT TO MONITOR.
[2020-03-25 07:53] VITALS: BP 131/74
[2020-03-25 15:36] VITALS: BP 101/55
[2020-03-25 19:10] VITALS: BP 111/64
--- NOTE | 2020-03-25 20:01 | NUR ---
VSS-AFEBRILE. OOB TO CHAIR FOR MEALS THIS SHIFT, REMAINS WEAK. GOOD APPETITE, NO REPORTED NAUSEA/VOMITING. PAIN WELL CONTROLLED WITH PO TRAMADOL. CALLS APPROPRIATELY FOR ANY NEEDED ASSISTANCE.
--- NOTE | 2020-03-26 02:47 | NUR ---
SMALL PINK AREAS ON BILATERAL LOWER EXTREMITIES, TURNED TO RIGHT SIDE WITH PILLOWS PER PATIENT REQUEST. INCONTINENT OF URINE ONCE AFTER ATTEMPT TO USE BEDPAN. REQUESTING TRAMADOL FOR PAIN, GIVEN AFTER 6 HRS, PLAN TO OFFER AGAIN AT 0630. BLOOD SUGAR AT HS WAS 132 AND HENCE REQUIRED NO INSULIN.
[2020-03-26 04:38] VITALS: BP 99/65
[2020-03-26 07:40] VITALS: BP 94/48
--- NOTE | 2020-03-26 10:52 | NUR ---
cm tried calling jude in room, no answer. cm spoke with jude daughter toan via phone call, education on acute rehab, skilled, custodial , and [place]. " ok to send referral to [facility], we liked mid am but that is where mom pulled her groin and i don't think she will go back it was going so will and then doing the 12 stairs when she pulled her groin"/toan. referral to be sent to [facility].
--- NOTE | 2020-03-26 11:31 | NUR ---
FAXED REFERRAL TO [facility] RECEIVED CONFIRMATION AND LEFT MSG WITH RAJEEV IN ADM. DP TO FOLLOW.
--- NOTE | 2020-03-26 15:45 | NUR ---
PT A&OX4. TRANSFERS WITH MAX ASSIST. IV INTACT IN R FA. PT C/O PELVIC PAIN AT TODAY AT 07/09. SURGERY, ORTHO HAS CONSULTED WITH PT TODAY, DR.K THOMPSON JUNG CONSULT CALLED AND SPOKE TO SHELDON WILL BE HERE TODAY OR TOMORROW. CALL LIGHT W/I REACH. BED ALARM ON.
[2020-03-26 16:30] VITALS: BP 93/58
[2020-03-26 19:56] VITALS: BP 112/57
--- NOTE | 2020-03-27 03:39 | NUR ---
ASSESSED AT START OF SHIFT PT RESTING IN BED. A&OX3 SLIGHTLY FORGETFUL. INCONTINENT OF URINE AND A SETUP FOR MEALS . C/O GENERALIZIED PAIN TRAMADOL GIVENX1. REPOSITIONED FOR COMFORT. BLOOD SUGAR CHECKED NO COVERAGE. FALL PREC IN PLACE AND CALL LIGHT IN REACH WILL CONT TO MONITOR.
--- NOTE | 2020-03-27 07:40 | NUR ---
new orders for 5n consult
--- NOTE | 2020-03-27 07:55 | NUR ---
CALLED CONSULT TO REHAB ON 5TH FLOOR. PT RESTING IN BED ALERT XS 4. BLOOD SUGARS CHECKED.
[2020-03-27 08:00] VITALS: BP 121/61
--- NOTE | 2020-03-27 12:34 | NUR ---
PATIENT UP IN BEDSIDE CHAIR EATING LUNCH BLOOD SUGAR CHECKED PATIENT REFUSED S/S INSULIN. PT STATES NO PAIN AT THE PRESENT.
[2020-03-27 14:26] LABS: HEMOGLOBIN 12.5 gm/dL (12.0-15.0); MCHC 32.8 g/dL (28.0-37.0); MCV 94.5 fL (80.0-100.0); RBC 4.02 mil/uL (4.20-5.00); RDW 14.4 % (10.5-14.5)
[2020-03-27 14:36] LABS: CALCIUM 9.2 mg/dL (8.5-10.1); CREATININE 1.2 mg/dL (0.6-1.0); MAGNESIUM 1.6 mg/dL (1.8-2.4); POTASSIUM 4.2 mmol/L (3.5-5.1)
[2020-03-27 15:00] VITALS: BP 101/64
--- NOTE | 2020-03-27 16:09 | NUR ---
ON-GOING ASSESSMENT: SUDARSHAN REVIEWED CHART AND SPOKE WITH PATIENTS DAUGHTER. SHE REPORTS PATIENT DOES NOT WANT TO GO BACK TO [facility]. [facility] HAS DECLINED PATIENT STATING THEY DO NOT FEEL SHE WILL BE ABLE TO HAVE [facility] FOR THEIR THERAPY. [facility]N EVALUATED PATIENT AND FEEL SHE DOES NOT HAVE THE MEDICAL NECESSITY AND CANNOT ACCEPT HER. CM DISCUSSED SNF OPTIONS WITH PATIENTS DAUGHTER. SHE WANTED REFERRAL TO [facility]. CM SPOKE WITH [facility] WHO STATES THEY WILL NOT HAVE ANY BEDS UNTIL NEXT WEEK POSSIBLY MONDAY. DAUGHTER WAS EMAIL THE SNF LIST AND IS REVIEWING. SHE WAS CONSIDERING [facility] BUT THEN LATER SAID HER MOTHER DID NOT WANT TO GO THERE. SHE THEN REQUESTED A REFERRAL BE SENT TO [facility]. CM NOTIFIED CREDIT RATING INSPECTOR TO PLEASE SEND REFERRAL AND ALSO NOTIFY FACILITY PT HAS HAD A STAY ON [facility] WITHIN THE PAST TWO YEARS AND CLARIFY IF THEY WILL NEED A LEVEL II. CREDIT RATING INSPECTOR IS SENDING REFERRAL AND AWAITING INPUT. SUDARSHAN WILL FOLLOW UP ON MONDAY.
--- NOTE | 2020-03-27 16:36 | NUR ---
FAXED REFERRAL TO [facility] RECEIVED CONFIRMATION AND LEFT MSG WITH ADM. DP TO FOLLOW
--- NOTE | 2020-03-27 19:40 | NUR ---
SPOKE WITH PATIENT'S DAUGHTER GAVE HER UPDATE ON PATIENT'S CONDITION AND THAT DR MORALEZ OB/ STRATEGIC MARKETING ASSOCIATE WOULD BE BACK AT 0600 AM TO EXAMINE PATIENT.
[2020-03-27 19:50] VITALS: BP 110/60
[2020-03-28 04:50] VITALS: BP 112/64
[2020-03-28 05:38] LABS: HEMATOCRIT 35.6 % (37.0-47.0); HEMOGLOBIN 11.8 gm/dL (12.0-15.0); MCV 93.9 fL (80.0-100.0); RBC 3.8 mil/uL (4.20-5.00); RDW 14.5 % (10.5-14.5); WBC 6.1 thou/uL (4.0-11.0)
[2020-03-28 06:00] LABS: CALCIUM 8.9 mg/dL (8.5-10.1); MAGNESIUM 1.8 mg/dL (1.8-2.4); POTASSIUM 3.8 mmol/L (3.5-5.1)
--- NOTE | 2020-03-28 07:26 | NUR ---
ASSESSMENT COMPLETED.PT ALERT/CONFUSED AND FORGETFUL.PT UP ASSIST X2 TO BSC.DR MACKAY HERE TO SEE PT,PHYSCIAN NOTIFIED THAT PT'S DTR WANTS TO BE UPDATED ON PT'S CONDITION.BG MONITORED BUT PT REF COVERAGE.NO BM THIS SHIFT.PT PROGRESSING SLOWLY TOWARDS DC GOALS.CALL LIGHT WITHIN REACH.
[2020-03-28 08:55] VITALS: BP 119/66
[2020-03-28 17:01] VITALS: BP 113/66
--- NOTE | 2020-03-28 17:58 | NUR ---
ASSUMED PATIENT CARE AT 0715. PATIENT ALERT X 2-3 TIMES/ CONFUSED AT TIMES/ FORGETFUL. 2 PERSON ASST X UPTO BEDSIDE COMMODE. SWELLING ON FEET, PITTING. HAD BM TODAY. BLOOD SUGAR EVENING WAS 152, REFUSED INSILIN. IV RT FORE ARM, SALINE LOCKED. BED IN LOW POSITION, CALL LIGHT IN REACH, FALL PRECAUTION IN PLACE, PATIENT WILL CALL FOR HELP. WILL CONTINUE TO MONITOR.
[2020-03-28 19:10] VITALS: BP 114/54
--- NOTE | 2020-03-29 00:01 | NUR ---
PT WAS OBSERVED SITTING UP IN THE RECLINER IN HER ROOM AT START OF SHIFT.PT C/O PAIN ON HER GROIN,MANAGED WITH MED.PT UP WITH ASSIST X2 TO BSC.NO BM SO FAR.PT'S DTR CALLED TO CHECK ON PT,WAS UPDATED ON HER PROGRESS.DTR REQUESTED THAT PT WEAR BRIEFS WHILE IN BED,BRIEFS PROVIDED TO PATIENT.FALL PRECAUTIONS IN PLACE,CALL LIGHT WITHIN REACH.
[2020-03-29 03:40] VITALS: BP 114/67
[2020-03-29 15:15] VITALS: BP 97/56
--- NOTE | 2020-03-29 16:42 | NUR ---
PT A&OX4. IV INTACT IN R HAND. TRANSFERS WITH ASSIST TO BSC AND CHAIR. POSSIBLE DC TOMORROW TO [facility]HAB [facility]. CALL LIGHT W/I REACH, CHAIR ALARM ON.
[2020-03-29 19:20] VITALS: BP 89/47
[2020-03-30 04:15] VITALS: BP 118/54
[2020-03-30 07:41] VITALS: BP 104/60
--- NOTE | 2020-03-30 07:52 | NUR ---
ALERT AND ORIENTED. VOIDS PER BSC. REQUIRES SBA X 1. ROOM AIR, SATTING OKAY, DENIES ANY RESP DISTRESS.BLE EDEMA. SWALLOWS MEDS OKAY. SHE HAS BEEN CALM AND COOPERATIVE THRO SHIFT.CALLS APPROPRIATELY.
--- NOTE | 2020-03-30 13:11 | NUR ---
FAXED REFERRAL TO [facility] SPOKE WITH TOSIN IN ADM SHE RECEIVED REFERRAL AND WILL REVIEW. FA[facility]ED REFERRAL TO [facility] RECEIVED CONFIRMATION AND LEFT MESSAGE WITH KIKO IN ADM. FAXED REFERRAL TO [facility] SPOKE WITH KRYSTEN IN ADM SHE RECEIVED REFERRAL AND WILL REVIEW. DP TO FOLLOW.
[2020-03-30] MEDS ORDERED: ENOXAPARIN40 MG/0.1 SUBQ (15:11)
[2020-03-30] MEDS ORDERED: NOVOLOG100 UNIT/1 SUBQ (15:11)
[2020-03-30] MEDS ORDERED: DEMADEX20 MG PO (15:11)
--- NOTE | 2020-03-30 15:16 | NUR ---
CARE TEAM INDICATED THAT PT IS MEDICALLY STABLE TO DC TO SKILLED FACILITY THIS DAY. [facility] OP REVIEWED REFERRAL AND INDICATED THEY CAN ACCEPT PT. CM NOTIFIED PT'S DTR AND SHE IS AWARE AND AGREEABLE. NORA EASTON ARRANGED FOR 1630. CHART COPY ORDERED. ORDERS TO BE FAXED ONCE COMPLETED. NO OTHER CM INTERVENTION INDICATED. CASE CLOSED.
[2020-03-30] MEDS ORDERED: ULTRAM 50MG TAB50 MG PO (16:46)
[2020-03-30] MEDS ORDERED: TRAMADOL 50 MG50 MG PO (16:46)
--- NOTE | 2020-03-30 18:57 | NUR ---
DC ORDERS RECEIVED. NO IV PRESENT. W/C VAN PICKED PT UP. REPORT ATTEMPT UNSUCESSFULL NO ANSWERE, DETAILED MESSAGE LEFT ON VOICE MAIL.
== END 2020-03-30 18:15 | DRG 683 ==
LOC: ER 18:24 → 2N 20:31 → EROBS 20:31 → 2N 21:36 → 4S 03-24 22:36
PROVIDERS: Emergency Medicine; Internal Medicine; Nurse Practitioner Family; ADMIT Hospitalist
DX: N17.9 Acute kidney failure, unspecified (principal); I50.32 Chronic diastolic (congestive) heart failure; R19.00 Intra-abdominal and pelvic swelling, mass and lump, unspecified site; Z60.2 Problems related to living alone; M17.0 Bilateral primary osteoarthritis of knee; J45.909 Unspecified asthma, uncomplicated; F31.9 Bipolar disorder, unspecified; G47.00 Insomnia, unspecified; R32 Unspecified urinary incontinence; I11.0 Hypertensive heart disease with heart failure; R10.2 Pelvic and perineal pain; K37 Unspecified appendicitis; E11.9 Type 2 diabetes mellitus without complications; Z87.440 Personal history of urinary (tract) infections; Z90.710 Acquired absence of both cervix and uterus; Z79.899 Other long term (current) drug therapy; Z88.8 Allergy status to other drugs, medicaments and biological substances; Z87.01 Personal history of pneumonia (recurrent); Z79.4 Long term (current) use of insulin
CPT/HCPCS: 10081; 10102; 10797